=== PATIENT | male | born 1940 | race Caucasian/White ===

== ENCOUNTER → 2017-12-21 08:45 | Outpatient (CLI) | payer MEDICARE, SELFPAY ==
--- NOTE | 2017-12-21 08:53 | ECHOD_ITS ---
Reason For Study: MURMUR Procedure This was a 2D Doppler, Color Flow transthoracic echocardiogram. Exam performed in department. Left Ventricle Normal LV size. Left ventricular systolic function is normal. The estimated ejection fraction is 60 %. Transmitral diastolic flow velocities suggest mild (stage 1) diastolic dysfunction (reversed pattern). No regional wall motion abnormalities noted. Right Ventricle Normal RV size. Normal systolic function. Atria Normal left atrium. Normal right atrium. Hypermobile atrial septum. Mitral Valve Mild focal mitral valve calcification. Mild (1+) eccentric mitral valve insufficiency. Tricuspid Valve Normal tricuspid valve. Mild (1+) tricuspid valve insufficiency. Pulmonary artery systolic pressure is 30 mmHg. Aortic Valve Trisinus/trileaflet aortic valve. Mild focal aortic valve calcification. Peak aortic valve gradient 26 mmHg. Mean aortic valve gradient 15 mmHg. Mild aortic stenosis. Mild (1+) eccentric aortic valve insufficiency. Pulmonic Valve Normal pulmonic valve. Great Vessels Normal aortic root. The pulmonary artery is normal size. Normal inferior vena cava. Pericardium/Pleural No pericardial effusion. MMode/2D Measurements & Calculations LVIDd: 4.0 cm IVSd: 0.79 cm LVOT diam: 2.0 cm LVIDs: 2.5 cm LVPWd: 0.81 cm LVOT area: 3.1 cm2 RVDd: 2.9 cm FS: 38.9 % Ao root diam: 3.2 cm LAV(MOD-bp): 40.9 ml EDV(MOD-sp4): 69.2 ml LAV(MOD-bp) Indexed: 25.4 ml/m2 ESV(MOD-sp4): 31.1 ml LAV(MOD-sp2): 33.1 ml EF(MOD-sp4): 55.0 % LAV(MOD-sp4): 49.5 ml EDV(MOD-sp2): 60.9 ml SV(MOD-sp4): 38.0 ml SV(MOD-sp2): 35.7 ml EF(MOD-sp2): 58.6 % LA A4 area: 16.9 cm2 RA A4 area: 11.0 cm2 Doppler Measurements & Calculations MV E max [place]: 79.0 cm/sec Lat Peak E' [place]: 6.5 cm/sec Med Peak E' [place]: 5.8 cm/sec MV A max [place]: 111.4 cm/sec E/E' lat: 12.1 E/E' med: 13.6 MV E/A: 0.71 MV V2 max: 122.4 cm/sec Ao V2 max: 256.8 cm/sec AI max [place]: 333.8 cm/sec MV max P.0 mmHg Ao max P.4 mmHg AI max P.6 mmHg MV V2 mean: 66.2 cm/sec Ao V2 mean: 183.9 cm/sec AI dec slope: 267.4 cm/sec2 MV mean P.1 mmHg Ao mean P.2 mmHg AI P1/2t: 365.6 msec MV V2 VTI: 24.9 cm Ao V2 VTI: 53.2 cm MVA(VTI): 3.0 cm2 JAMIN(I,D): 1.4 cm2 JAMIN(V,D): 1.3 cm2 LV V1 max: 112.9 cm/sec SV(LVOT): 75.9 ml PA V2 max: 92.9 cm/sec LV V1 max P.1 mmHg LV V1 mean P.0 mmHg LV V1 mean: 83.1 cm/sec LV V1 VTI: 24.7 cm PI end-d dak[place]: 115.8 cm/sec TR max [place]: 251.9 cm/sec TR max P.4 mmHg Interpretation Summary Hypermobile atrial septum. Normal LV size. Left ventricular systolic function is normal. The estimated ejection fraction is 60 %. Transmitral diastolic flow velocities suggest mild (stage 1) diastolic dysfunction (reversed pattern). Mild focal mitral valve calcification. Mild (1+) tricuspid valve insufficiency. Mild aortic stenosis. Mild (1+) eccentric aortic valve insufficiency. Ordering Physician: Pedrito Fernandez Referring Physician: Pedrito Fernandez Performed By: Marlena Aguilar, RDCS, RVT
--- NOTE | 2017-12-21 08:54 | CDU_ITS ---
Reason For Study: STACEY carotid stenosis Rt. Velocities/BP Lt. Velocities/BP Prox CCA 126.0/20.4 cm/sec. Prox CCA 119.0/18.1 cm/sec. Mid CCA 104.0/14.9 cm/sec. Mid CCA 101.0/18.9 cm/sec. Dist CCA 87.2/19.6 cm/sec. Dist CCA 112.0/22.8 cm/sec. Prox ICA 87.4/21.1 cm/sec. Prox ICA 138.0/19.6 cm/sec. Mid ICA 86.2/24.6 cm/sec. Mid ICA 81.5/15.8 cm/sec. Dist ICA 103.0/31.7 cm/sec. Dist ICA 76.2/22.9 cm/sec. Rt. ICA/CCA = 103.0/104.0=1.0. Lt. ICA/CCA = 138.0/101.0=1.4. Prox ECA 169.0/18.7 cm/sec. Prox ECA 144.0/13.8 cm/sec. Rt. Vert. 45.2 cm/sec. Lt. Vert. 47.5/11.0 cm/sec. Right Extracranial There is heterogeneous, irregular atherosclerotic plaque noted in the right common carotid artery. There is heterogeneous, irregular atherosclerotic plaque noted in the right internal carotid artery. The atherosclerotic plaque causes acoustic shadowing. There is heterogeneous, smooth atherosclerotic plaque noted in the right external carotid artery. Antegrade flow is noted in the right vertebral artery. There is heterogeneous, irregular atherosclerotic plaque noted in the right bulb. Left Extracranial There is intimal thickening but no significant atherosclerotic plaque noted in the left common carotid artery. There is heterogeneous, irregular atherosclerotic plaque noted in the left internal carotid artery. There is homogeneous, irregular atherosclerotic plaque noted in the left external carotid artery. Antegrade flow is noted in the left vertebral artery. There is heterogeneous, irregular atherosclerotic plaque noted in the left bulb. Procedure Carotid Duplex 40051. The exam was diagnostic. Exam performed in department. Interpretation Summary Mild (<50%) stenosis right extracranial internal carotid. Moderate (50-69%) stenosis left extracranial internal carotid. Flow within the vertebral arteries is antegrade bilaterally. Acoustic shadowing due to arterial calcification is noted in the proximal internal carotid arteries bilaterally, which obscures visualization of the arterial lumen. Therefore, the degree of stenosis may exceed that which is indicated by velocity criteria alone. Therefore, clinical correlation is advised, and an alternative imaging modality may be helpful. Ordering Physician: Pedrito Fernandez Referring Physician: Pedrito Fernandez Performed By: Andria Ornelas, DEBORAH, RVT
== END ==
PROVIDERS: Family Provider Family Medicine; PCP Family Medicine; Visit Provider Family Medicine
DX: R01.1 Cardiac murmur, unspecified (principal); I65.23 Occlusion and stenosis of bilateral carotid arteries
CPT/HCPCS: 93306; 93880

== ENCOUNTER 2018-01-11 18:38 | Emergency (ER) | payer MEDICARE, SELFPAY ==
[2018-01-11 18:39] VITALS: BP 161/79; PULSE 94; RESP 18; TEMP 37.2; O2SAT 95; BMI 21.7
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
[2018-01-11 19:36] VITALS: BP 131/76; PULSE 92; O2SAT 98
== END 2018-01-11 19:37 | disposition home or self-care (01) ==
PROVIDERS: Emergency Provider Emergency Medicine; Family Provider Family Medicine; PCP Family Medicine
DX: Z04.1 Encounter for examination and observation following transport accident (principal); Z79.82 Long term (current) use of aspirin
CPT/HCPCS: 99282

== ENCOUNTER → 2018-08-09 03:45 | Outpatient (CLI) | payer MEDICARE, SELFPAY ==
[2018-08-09 09:04] LABS: AST(SGOT) 17 U/L (15-37); Alanine Aminotransfer ALT/SGPT 26 U/L (16-61); Albumin, Serum 3.3 g/dL (3.2-5.0); Alkaline Phosphatase 65 U/L (45-117); Bilirubin, Direct 0.12 mg/dL (0.00-0.30); Cholesterol 166 mg/dL (200); Globulin 3.2 g/dL (2.2-4.2); High Density Lipoprotein 56 mg/dL; Protein, Total 6.5 g/dL (6.4-8.2); Triglycerides 40 mg/dL; Very Low Density Lipoprotein 8 mg/dL (5-40)
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
== END ==
PROVIDERS: Family Provider Family Medicine; PCP Family Medicine; Visit Provider Internal Medicine Cardiovascular Disease
DX: I65.22 Occlusion and stenosis of left carotid artery (principal)
CPT/HCPCS: 80061; 80076

== ENCOUNTER 2018-10-24 19:57 | Inpatient (IN) | payer MEDICARE, SELFPAY ==
[2018-10-24 20:00] VITALS: BP 149/70; PULSE 111; RESP 16; TEMP 36.5; O2SAT 98; BMI 19.3
--- NOTE | 2018-10-24 20:21 | EKG12_ITS ---
Test Reason : Blood Pressure : / mmHG Vent. Rate : 100 BPM Atrial Rate : 100 BPM P-R Int : 132 ms QRS Dur : 076 ms QT Int : 344 ms P-R-T Axes : 062 024 017 degrees QTc Int : 443 ms Normal sinus rhythm Possible Left atrial enlargement Nonspecific ST abnormality Abnormal ECG Confirmed by DYANA LEE, CHRISTA ([id number]), senior technical editor GASPER ODONNELL ([id number]) on 10/25/2018 2:38:26 PM Referred By: Constantino Aguiar Confirmed By:CHRISTA TURPIN MD
--- NOTE | 2018-10-24 20:21 | CT_ITS ---
STUDY: CT BRAIN WITHOUT CONTRAST REASON FOR EXAM: Male, 78 years old. Fall on Thursday, bruising on the forehead and around the eyes, patient is on blood thinners RADIATION DOSAGE (If Supplied By Facility): CTDIvol = ( 44.99 ) mGy, DLP = ( 779.24 ) mGycm TECHNIQUE: Transaxial CT imaging of the brain was performed without administration of intravenous contrast material. Individualized dose optimization techniques were used for this CT. COMPARISON: None. FINDINGS: Normal soft tissue structures. Normal calvarium. There is atherosclerosis of the carotid siphons and vertebral arteries. There is mild cerebral atrophy with widening of the extra-axial spaces and ventricular dilatation. There are areas of decreased attenuation within the white matter tracts of the supratentorial brain, consistent with microvascular disease changes. Normal basal ganglia and thalami. Normal brainstem. Normal cerebellum. There is no intracranial hemorrhage. There are no findings of an acute ischemic infarction. Normal visualized paranasal sinuses. Operative changes of the bilateral orbital globes. CT/Brain/Head without Contrast IMPRESSION: 1. No acute intracranial hemorrhage or mass effect. 2. Central parenchymal volume loss. White matter changes that are nonspecific but most commonly associated with chronic small vessel ischemic disease. Electronically Signed: Alan Brown MD at 21:18 EST , Service support ,
--- NOTE | 2018-10-24 20:22 | CT_ITS ---
STUDY: CT FACIAL BONES WITHOUT CONTRAST REASON FOR EXAM: Male, 78 years old. Fall on Thursday, facial swelling, periorbital swelling RADIATION DOSAGE (If Supplied By Facility): CTDIvol = ( 29.38 ) mGy, DLP = ( 584.19 ) mGycm TECHNIQUE: The patient was scanned in a multi detector CT scanner. Sagittal and coronal images were reconstructed. Individualized dose optimization techniques were used for this CT. COMPARISON: None. FINDINGS: There is slight amount of left infraorbital soft tissue swelling but no underlying fracture. Normal orbital carmichael and orbital contents. Normal nasal bones and anterior nasal spine. Normal facial bones. There is no demonstrated fracture. Operative changes of the bilateral orbital globes. Normal visualized paranasal sinuses. Leftward deviation of the nasal septum with apical spur. Carotid calcifications noted. CT/Sinus/Facial Bone IMPRESSION: No maxillofacial/orbital fracture. Left infraorbital soft tissue swelling. Electronically Signed: Alan Brown MD at 21:20 EST , Service support ,
--- NOTE | 2018-10-24 20:22 | CT_ITS ---
STUDY: CT CERVICAL SPINE WITHOUT CONTRAST REASON FOR EXAM: Male, 78 years old. Fall on Thursday, facial swelling, dizziness, neck pain RADIATION DOSAGE (If Supplied By Facility): CTDIvol = ( 12.64 ) mGy, DLP = ( 253.36 ) mGycm TECHNIQUE: High resolution transaxial imaging was performed without contrast material. Sagittal and coronal images were reconstructed. Individualized dose optimization techniques were used for this CT. COMPARISON: None FINDINGS: Normal craniovertebral junction. There are degenerative changes of the anterior atlantoaxial articulation. Normal odontoid process. There is an exaggerated cervical lordosis. Normal vertebral bodies and posterior osseous elements. C2-3: Normal endplates. Normal disc height and morphology. Normal central canal and intervertebral neuroforamina. C3-4: Disc space narrowing with endplate sclerosis and spondylosis. Posterior disc osteophyte complex with right uncovertebral hypertrophy and mild bilateral facet arthropathy resulting in mild right foraminal stenosis. C4-5: Normal endplates. Normal disc height and morphology. Normal central canal and intervertebral neuroforamina. Mild bilateral facet arthropathy, left more than right. C5-6: Mild disc space narrowing posteriorly with moderate bilateral facet arthropathy. Mild narrowing of the bilateral neural foramen. C6-7: Normal endplates. Normal disc height and morphology. Normal central. Bilateral facet arthropathy without substantial foraminal stenosis. C7-T1: Normal endplates. Normal disc height and morphology. Normal central. Bilateral facet arthropathy without substantial foraminal stenosis. Atherosclerosis of the bilateral carotid arteries. CT/Spine Cervical without Contras IMPRESSION: 1. No cervical spine fracture. 2. Exaggerated cervical lordosis. 3. Degenerative changes, as above. Electronically Signed: Alan Brown MD at 21:22 EST , Service support ,
--- NOTE | 2018-10-24 20:27 | ED.DCSUM_ITS ---
- ER Visit Summary Date of Service: 10/24/18 Chief Complaint: Fall, dizziness History of Present Illness: The patient is a 78 M presenting after fall. Patient fell 2 days ago on his basement steps. He hit his head on the basement floor. He denies loss of consciousness. He is not on anticoagulants. He does not know what caused him to fall. He was doing well yesterday. He has been able to ambulate. Today he was doing well and then had an episode of hematemesis. He has had dark stool. He had dizziness after vomiting. He denies chest pain or shortness of breath. Denies abdominal pain. Denies other complaints. Physical Examination: Vitals are stable. Patient is afebrile. Alert no acute distress. HEENT exam left periorbital ecchymosis. Neck is nontender Lungs are clear and equal bilaterally. Heart is regular rate and rhythm. Abdomen is soft nontender nondistended. Extremities are unremarkable. Skin is warm and dry. No focal neurologic deficit. Remainder of exam is unremarkable. Emergency Department Course and Treatment: EKG is sinus rate of 100 with no acute ischemic changes. Chest x-ray shows no acute process. CT head shows no acute process. CT maxillofacial bones shows left infraorbital soft tissue swelling with no fracture. CT C-spine shows no fracture. CBC shows hemoglobin 7.8, platelet 145. Chemistries showed glucose 114, BUN 47. INR 1.2. Troponin is negative. Stool is guaiac negative. Due to hematemesis NG tube was placed. He has 100 cc of coffee-ground emesis aspirated. He was given Protonix IV. Discussed with Dr. Amor and the hospitalist for admission. Disposition: Admission Impression: Upper GI bleed This note was generated with [employer] dictation software. It may contain incorrect words, spelling, and punctuation that were not noted in review of the chart prior to signing ED Disposition - Plan for ED Patient: Referrals: Pedrito Fernandez MD [Primary Care Provider] -
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
[2018-10-24 20:31] LABS: Absolute Lymphocyte Count 0.67 X10^3/ul (0.83-4.51); Absolute Neutrophil Count 8.2 X10^3/uL (2.0-7.7); Basophil# 0.03 X10^3/uL; Basophil% 0.3 % (0-1); Eosinophil# 0.09 X10^3/uL; Eosinophils% 0.9 % (0-5); Hematocrit 23.9 % (40-54); Hemoglobin 7.8 g/dl (13.0-16.5); Lymphocyte # 0.67 X10^3/ul (4.0); Lymphocyte % 6.6 % (19-41); Mean Corp Hgb Conc 32.6 g/gl (32-36); Mean Corpuscular Hgb 31.3 pg (27.0-32.0); Mean Platelet Vol. 9.6 fl (6.2-12.0); Monocyte# 1.12 X10^3/uL; Neutrophil # 8.23 X10^3/uL (2.7-7.7); POSITIVE COUNT NO; POSITIVE DIFFERENTIAL NO; POSITIVE MORPHOLOGY NO; Platelet Count 145 K/mm3 (150-450); RBC Distribution Width CV 13.5 % (11.6-14.6); Red Blood Count 2.49 M/mm3 (4.6-6.2); White Blood Count 10.2 K/mm3 (4.4-11.0)
[2018-10-24 20:38] LABS: International Normalized Ratio 1.2; Prothrombin Time (Protime)PT. 14.6 SECONDS (11.7-14.9)
[2018-10-24 20:39] LABS: Partial Thromboplast Time 23.8 Seconds (24.1-36.2)
[2018-10-24 20:48] LABS: Anion Gap 5 (5-15); BUN 47 mg/dL (7-18); BUN/Creat Ratio 42.7 RATIO (10-20); Calcium,Total 7.7 mg/dL (8.5-10.1); Chloride 111 mmol/L (98-107); EST Glomerular Filtration Rate 69 mL/min (>60); Est Glom Filt Rate - Afr Amer 83 mL/min (>60); Glucose 114 mg/dL (74-106); Potassium 4.3 mmol/L (3.5-5.1); Sodium Level 142 mmol/L (136-145)
--- NOTE | 2018-10-24 21:25 | RAD_ITS ---
STUDY: X-RAY - ABDOMEN/PELVIS REASON FOR EXAM: Male, 78 years old. An NG tube placement TECHNIQUE: Single AP view of the abdomen / pelvis. COMPARISON: None. FINDINGS: There is an enteric tube noted with its tip in the stomach. There is no bowel obstruction. There is air and stool to the level of the rectum. There are degenerative changes noted in the spine. RAD/Abdomen Single View (Portable) IMPRESSION: Enteric tube tip in the stomach. No bowel obstruction. Electronically Signed: Alan Forrest, at 22:17 EST Tel , Service support ,
[2018-10-24 22:05] VITALS: BP 133/69; PULSE 101; RESP 12
--- NOTE | 2018-10-24 22:55 | PCM.HP.STD ---
Problem List (1) GI bleed Status: Acute (2) Closed head injury Status: Acute (3) Fall Status: Acute (4) Systolic murmur Status: Chronic (5) Left carotid artery stenosis Status: Chronic History of Present Illness Date of Admission: 10/24/18 Chief Complaint: Hematemesis, fall. The patient is a 78 year old M with past medical history as mentioned above presented to the emergency room because of hematemesis and fall. Patient's daughter who is a nurse was at the bedside and she states that the main presenting complaint today is because he vomited blood once this evening. The vomitus was bright red blood, moderate to large amount, associated with mild dizziness and without aggravating or relieving factors. His daughter mentioned that he complained that his stool has been dark over the last several days. He denied abdominal pain, constipation or diarrhea. 3 days ago, patient had a fall and he is not sure why he fell and he did not seek medical attention. He does not remember if he was dizzy or lightheaded. He denied chest pain or shortness of breath. In the emergency department, patient was afebrile, tachycardic, blood pressure was stable and pulse ox was 98% on room air. Routine blood work was remarkable for hemoglobin of 7.8 g/dL, BUN of 47, otherwise normal. EKG revealed normal sinus rhythm without evidence of acute ischemic changes. Troponin was negative. CTA head done because of the mechanical fall and showed no acute findings. CT scan cervical spine showed no acute fracture or dislocation. Because of the periorbital ecchymosis, x-ray of the facial bones and sinuses done and showed no acute fractures. Chest x-ray showed no infiltrate, consolidation or effusion. KUB done after insertion of NG tube and showed that the tip of the tube is in the stomach. He is being admitted for GI bleed likely upper GI bleed, acute blood loss anemia and recent mechanical fall with closed head trauma. Past Medical History Past Medical History (Chronic Problems): Chronic Problems (Last Reviewed 02/03/18 @ 11:15 by Jaime Oreilly MD) Systolic murmur (Chronic) Non-rheumatic tricuspid valve insufficiency (Chronic) Nonrheumatic aortic valve insufficiency (Chronic) Carotid bruit (Chronic) Left carotid artery stenosis (Chronic) Medical History: Medical History (Last Reviewed 02/03/18 @ 11:15 by Jaime Oreilly MD) Left carotid artery stenosis (Chronic) I65.22 Prostate cancer C61 Allergies Penicillins Adverse Reaction (Verified 10/24/18 20:04) Unknown Home Medications: Ambulatory Orders Medication Instructions Recorded Aspirin [Aspirin, Baby] 81 mg PO DAILY 01/11/18 ascorbic acid (vitamin C) 500 mg 500 mg PO QDAY 02/03/18 tablet atorvastatin 10 mg tablet 10 mg PO QDAY #90 tab 02/03/18 multivitamin capsule 1 cap PO QAM 02/03/18 Surgical History: herniorrhaphy Psychiatric History: No pertinent psych hx Lives: Alone Smoking Status: Never smoker Alcohol: None Drugs: None - *Family History Maternal Family History: Family History (Last Reviewed 02/03/18 @ 11:15 by Jaime Oreilly MD) Brother Hypertension Daughter Hypertension Mother Heart disease History Items: No pertinent history Paternal Family History: Family History (Last Reviewed 02/03/18 @ 11:15 by Jaime Oreilly MD) Brother Hypertension Daughter Hypertension Mother Heart disease History Items: No pertinent history Review of Systems Constitutional: Denies: Anorexia, Chills, Fever, Weakness Eyes: Denies: Blurred vision, Double vision, Drainage, Redness HEENT: Denies: Difficulty Hearing, Ear Pain, Eye Pain, Nasal bleeding, Nasal Congestion, Sore Throat Cardiovascular: Reports: Light Headedness. Denies: Chest Pain, Chest Pressure, Chest Tightness, Palpitations, Syncope Respiratory: Denies: Cough, Pleuritic Pain, Shortness of Breath, Sputum production, Wheezing Gastrointestinal: Reports: Hematemesis. Denies: Abdominal Pain, Constipation, Diarrhea, Nausea, Vomiting Genitourinary: Denies: Dysuria, Frequency, Hematuria Musculoskeletal: Denies: Arm Pain, Back Pain, Foot Pain Skin: Denies: Dryness, Rash Neurological: Denies: Balance problems, Blurred vision, Double vision, Change in Speech, Slurred speech, Confusion, Headaches, Incoordination, Numbness Psychiatric: Denies: Anxiety, Depression Endocrine: Denies: Change in Body Habitus, Polydipsia VTE Information - Inpt Only VTE Present on Admission: No VTE Mechan Device Prophylaxis: SCD's VTE Pharm Prophylaxis ordered?: No Patient Problems: Active and Suspected Problems (Last Reviewed 02/03/18 @ 11:15 by Jaime Oreilly MD) GI bleed (Acute) Closed head injury (Acute) Fall (Acute) - Physical Exam General: Alert, Oriented x3, Cooperative, No apparent distress HEENT: PERRLA, EOMI, Normocephalic, - - Traumatic, left periorbital ecchymosis. Oral: Moist Mucosa, No Gingival or Mucosal Lesions/ Ulcerations Neck: Supple, No JVD, Negative Carotid Bruits, Trachea Midline, Thyroid Normal Size and Texture Lungs: Clear to auscultation, No rhonchi, No wheeze, No rales, Diminished Cardiovascular: Regular rate, Regular Rhythm, Normal S1, Normal S2, PMI Normal, Murmur - Systolic murmur., Tachycardic Abdomen: Bowel Sounds Present, Soft, Non Tender, Non-Distended, No Hepato-splenomegaly Extremities: No clubbing, No cyanosis, Edema - Trace edema. Skin: No rashes, No breakdown Lymphatic: No Cervical, Supraclavicular, or Inguinal Adenopathy Neurological: Cranial nerves II-XII grossly intact, Motor Exam 5/5 strength throughout Psych/Mental Status: Normal Affect, Appropriate, Alert and oriented to time, place, person, mood and affect Vital Signs Temp Pulse Resp BP Pulse Ox 97.7 F L 101 H 12 133/69 H 98 10/24/18 20:00 10/24/18 22:05 10/24/18 22:05 10/24/18 22:05 10/24/18 20:00 Oxygen Delivery Method Room Air Weight: 120 lb Body Mass Index (BMI) 19.3 Microbiology Past 72 Hours 10/24/18 21:12 Stool Occult Blood (ANDREA) - Final Stool Laboratory Tests Past 24 Hrs 10/24/18 10/24/18 10/24/18 20:18 20:18 20:18 WBC 10.2 RBC 2.49 L Hgb 7.8 L Hct 23.9 L MCV 96.0 H MCH 31.3 MCHC 32.6 RDW 13.5 RDW Differential 47.0 H Plt Count 145 L MPV 9.6 Immature Gran % (Auto) 0.200 Neut % (Auto) 81.0 H Lymph % (Auto) 6.6 L [place] % (Auto) 11.0 H Eos % (Auto) 0.9 Baso % (Auto) 0.3 Absolute Neuts (auto) 8.2 H Absolute Lymphs (auto) 0.67 L Total Counted Not Reportable PT 14.6 INR 1.2 APTT 23.8 L Sodium 142 Potassium 4.3 Chloride 111 H Carbon Dioxide 26.0 Anion Gap 5 BUN 47 H Creatinine 1.10 Estim Creat Clear Calc 43.30 Est GFR (MDRD) Af Amer 83 Est GFR (MDRD) Non-Af 69 BUN/Creatinine Ratio 42.7 H Glucose 114 H Calcium 7.7 L Troponin I < 0.015 Clinical Impression(s) from Imaging Studies Brain CT 10/24/18 20:21 IMPRESSION: 1. No acute intracranial hemorrhage or mass effect. 2. Central parenchymal volume loss. White matter changes that are nonspecific but most commonly associated with chronic small vessel ischemic disease. Electronically Signed: Alan Brown MD at 21:18 EST , Service support , Cervical Spine CT 10/24/18 20:22 IMPRESSION: 1. No cervical spine fracture. 2. Exaggerated cervical lordosis. 3. Degenerative changes, as above. Electronically Signed: Alan Brown MD at 21:22 EST , Service support , Facial/Sinus 10/24/18 20:22 IMPRESSION: No maxillofacial/orbital fracture. Left infraorbital soft tissue swelling. Electronically Signed: Alan Brown MD at 21:20 EST , Service support , Chest X-Ray 10/24/18 20:30 IMPRESSION: Nonacute portable x-ray examination of the chest. Electronically Signed: Alan Brown MD at 20:45 EST , Service support , KUB X-Ray 10/24/18 21:25 IMPRESSION: Enteric tube tip in the stomach. No bowel obstruction. Electronically Signed: Alan Forrest, at 22:17 EST Tel , Service support , Assessment/Plan All Active Problems (Last Reviewed 02/03/18 @ 11:15 by Jaime Oreilly MD) GI bleed (Acute) Closed head injury (Acute) Fall (Acute) This is a 78 years old male patient presented to the emergency room because of hematemesis and recent fall, found to have GI bleed with acute blood loss anemia and closed head injury. #1 GI bleed: Likely upper GI bleed. BUN is elevated, creatinine is normal. Patient is likely actively bleeding because he is tachycardic. Differential diagnoses include peptic ulcer disease. Apart from tachycardia, other vital signs stable. Patient denies any use of NSAIDs. Plan: Admit to ICU, complete bedrest, critical care monitoring, keep on n.p.o., IV fluids, type, crossmatch and transfuse 2 units of packed RBCs, H&H every 6 hours, start IV Protonix drip, repeat CBC and BMP tomorrow morning, general surgery consult, antiemetics. #2 acute blood loss anemia: Secondary above. Admission hemoglobin is a 7.8 g/dL. Baseline hemoglobin is unknown. Plan to transfuse 2 units of packed RBCs, H&H every 6 hours, repeat CBC tomorrow morning. #3 recent fall/closed head trauma: Patient not sure why he had a fall. He does have ecchymosis around his eyes. Imaging studies including CT scan brain CT scan cervical spine, x-ray of the facial bones and sinuses as well as chest x-ray showed no acute fractures or dislocations. #4 carotid artery stenosis: Stable, patient had no interventions and he has been on statins according to his daughter. #5 DVT prophylaxis: SCDs. #6 CODE STATUS: In the emergency room, I discussed the CODE STATUS with the patient and his daughter and both confirming DNR CCA, patient does not want any CPR, intubation or mechanical ventilation. After patient got into the ICU, nursing staff reported that the patient and his daughter changed their minds and they wanted full code. At this time, patient states her left. I would keep the CODE STATUS as full code for now and we need to discuss the CODE STATUS again with the patient in the presence of his daughter tomorrow. This note was generated with Dragon dictation software. It may contain incorrect words, spelling, and punctuation that were not noted in checking the note before signing. Code Visit Inpatient E&M: 40944 Init Hosp L3
--- NOTE | 2018-10-24 22:59 | HP.PCM_ITS ---
Problem List (1) GI bleed Status: Acute (2) Closed head injury Status: Acute (3) Fall Status: Acute (4) Systolic murmur Status: Chronic (5) Left carotid artery stenosis Status: Chronic History of Present Illness Date of Admission: 10/24/18 Chief Complaint: Hematemesis, fall. The patient is a 78 year old M with past medical history as mentioned above presented to the emergency room because of hematemesis and fall. Patient's daughter who is a nurse was at the bedside and she states that the main presenting complaint today is because he vomited blood once this evening. The vomitus was bright red blood, moderate to large amount, associated with mild dizziness and without aggravating or relieving factors. His daughter mentioned that he complained that his stool has been dark over the last several days. He denied abdominal pain, constipation or diarrhea. 3 days ago, patient had a fall and he is not sure why he fell and he did not seek medical attention. He does not remember if he was dizzy or lightheaded. He denied chest pain or shortness of breath. In the emergency department, patient was afebrile, tachycardic, blood pressure was stable and pulse ox was 98% on room air. Routine blood work was remarkable for hemoglobin of 7.8 g/dL, BUN of 47, otherwise normal. EKG revealed normal sinus rhythm without evidence of acute ischemic changes. Troponin was negative. CTA head done because of the mechanical fall and showed no acute findings. CT scan cervical spine showed no acute fracture or dislocation. Because of the periorbital ecchymosis, x-ray of the facial bones and sinuses done and showed no acute fractures. Chest x-ray showed no infiltrate, consolidation or effusion. KUB done after insertion of NG tube and showed that the tip of the tube is in the stomach. He is being admitted for GI bleed likely upper GI bleed, acute blood loss anemia and recent mechanical fall with closed head trauma. Past Medical History Past Medical History (Chronic Problems): Chronic Problems (Last Reviewed 02/03/18 @ 11:15 by Jaime Oreilly MD) Systolic murmur (Chronic) Non-rheumatic tricuspid valve insufficiency (Chronic) Nonrheumatic aortic valve insufficiency (Chronic) Carotid bruit (Chronic) Left carotid artery stenosis (Chronic) Medical History: Medical History (Last Reviewed 02/03/18 @ 11:15 by Jaime Oreilly MD) Left carotid artery stenosis (Chronic) I65.22 Prostate cancer C61 Allergies Penicillins Adverse Reaction (Verified 10/24/18 20:04) Unknown Home Medications: Ambulatory Orders Medication Instructions Recorded Aspirin [Aspirin, Baby] 81 mg PO DAILY 01/11/18 ascorbic acid (vitamin C) 500 mg 500 mg PO QDAY 02/03/18 tablet atorvastatin 10 mg tablet 10 mg PO QDAY #90 tab 02/03/18 multivitamin capsule 1 cap PO QAM 02/03/18 Surgical History: herniorrhaphy Psychiatric History: No pertinent psych hx Lives: Alone Smoking Status: Never smoker Alcohol: None Drugs: None - *Family History Maternal Family History: Family History (Last Reviewed 02/03/18 @ 11:15 by Jaime Oreilly MD) Brother Hypertension Daughter Hypertension Mother Heart disease History Items: No pertinent history Paternal Family History: Family History (Last Reviewed 02/03/18 @ 11:15 by Jaime Oreilly MD) Brother Hypertension Daughter Hypertension Mother Heart disease History Items: No pertinent history Review of Systems Constitutional: Denies: Anorexia, Chills, Fever, Weakness Eyes: Denies: Blurred vision, Double vision, Drainage, Redness HEENT: Denies: Difficulty Hearing, Ear Pain, Eye Pain, Nasal bleeding, Nasal Congestion, Sore Throat Cardiovascular: Reports: Light Headedness. Denies: Chest Pain, Chest Pressure, Chest Tightness, Palpitations, Syncope Respiratory: Denies: Cough, Pleuritic Pain, Shortness of Breath, Sputum production, Wheezing Gastrointestinal: Reports: Hematemesis. Denies: Abdominal Pain, Constipation, Diarrhea, Nausea, Vomiting Genitourinary: Denies: Dysuria, Frequency, Hematuria Musculoskeletal: Denies: Arm Pain, Back Pain, Foot Pain Skin: Denies: Dryness, Rash Neurological: Denies: Balance problems, Blurred vision, Double vision, Change in Speech, Slurred speech, Confusion, Headaches, Incoordination, Numbness Psychiatric: Denies: Anxiety, Depression Endocrine: Denies: Change in Body Habitus, Polydipsia VTE Information - Inpt Only VTE Present on Admission: No VTE Mechan Device Prophylaxis: SCD's VTE Pharm Prophylaxis ordered?: No Patient Problems: Active and Suspected Problems (Last Reviewed 02/03/18 @ 11:15 by Jaime Oreilly MD) GI bleed (Acute) Closed head injury (Acute) Fall (Acute) - Physical Exam General: Alert, Oriented x3, Cooperative, No apparent distress HEENT: PERRLA, EOMI, Normocephalic, - - Traumatic, left periorbital ecchymosis. Oral: Moist Mucosa, No Gingival or Mucosal Lesions/ Ulcerations Neck: Supple, No JVD, Negative Carotid Bruits, Trachea Midline, Thyroid Normal Size and Texture Lungs: Clear to auscultation, No rhonchi, No wheeze, No rales, Diminished Cardiovascular: Regular rate, Regular Rhythm, Normal S1, Normal S2, PMI Normal, Murmur - Systolic murmur., Tachycardic Abdomen: Bowel Sounds Present, Soft, Non Tender, Non-Distended, No Hepato- splenomegaly Extremities: No clubbing, No cyanosis, Edema - Trace edema. Skin: No rashes, No breakdown Lymphatic: No Cervical, Supraclavicular, or Inguinal Adenopathy Neurological: Cranial nerves II-XII grossly intact, Motor Exam 5/5 strength throughout Psych/Mental Status: Normal Affect, Appropriate, Alert and oriented to time, place, person, mood and affect Vital Signs Temp Pulse Resp BP Pulse Ox 97.7 F L 101 H 12 133/69 H 98 10/24/18 20:00 10/24/18 22:05 10/24/18 22:05 10/24/18 22:05 10/24/18 20:00 Oxygen Delivery Method Room Air Weight: 120 lb Body Mass Index (BMI) 19.3 Microbiology Past 72 Hours 10/24/18 21:12 Stool Occult Blood (ANDREA) - Final Stool Laboratory Tests Past 24 Hrs 10/24/18 10/24/18 10/24/18 20:18 20:18 20:18 WBC 10.2 RBC 2.49 L Hgb 7.8 L Hct 23.9 L MCV 96.0 H MCH 31.3 MCHC 32.6 RDW 13.5 RDW Differential 47.0 H Plt Count 145 L MPV 9.6 Immature Gran % (Auto) 0.200 Neut % (Auto) 81.0 H Lymph % (Auto) 6.6 L [place] % (Auto) 11.0 H Eos % (Auto) 0.9 Baso % (Auto) 0.3 Absolute Neuts (auto) 8.2 H Absolute Lymphs (auto) 0.67 L Total Counted Not Reportable PT 14.6 INR 1.2 APTT 23.8 L Sodium 142 Potassium 4.3 Chloride 111 H Carbon Dioxide 26.0 Anion Gap 5 BUN 47 H Creatinine 1.10 Estim Creat Clear Calc 43.30 Est GFR (MDRD) Af Amer 83 Est GFR (MDRD) Non-Af 69 BUN/Creatinine Ratio 42.7 H Glucose 114 H Calcium 7.7 L Troponin I < 0.015 Clinical Impression(s) from Imaging Studies Brain CT 10/24/18 20:21 IMPRESSION: 1. No acute intracranial hemorrhage or mass effect. 2. Central parenchymal volume loss. White matter changes that are nonspecific but most commonly associated with chronic small vessel ischemic disease. Electronically Signed: Alan Brown MD at 21:18 EST , Service support , Cervical Spine CT 10/24/18 20:22 IMPRESSION: 1. No cervical spine fracture. 2. Exaggerated cervical lordosis. 3. Degenerative changes, as above. Electronically Signed: Alan Brown MD at 21:22 EST , Service support , Facial/Sinus 10/24/18 20:22 IMPRESSION: No maxillofacial/orbital fracture. Left infraorbital soft tissue swelling. Electronically Signed: Alan Brown MD at 21:20 EST , Service support , Chest X-Ray 10/24/18 20:30 IMPRESSION: Nonacute portable x-ray examination of the chest. Electronically Signed: Alan Brown MD at 20:45 EST , Service support , KUB X-Ray 10/24/18 21:25 IMPRESSION: Enteric tube tip in the stomach. No bowel obstruction. Electronically Signed: Alan Forrest, at 22:17 EST Tel , Service support , Assessment/Plan All Active Problems (Last Reviewed 02/03/18 @ 11:15 by Jaime Oreilly MD) GI bleed (Acute) Closed head injury (Acute) Fall (Acute) This is a 78 years old male patient presented to the emergency room because of hematemesis and recent fall, found to have GI bleed with acute blood loss anemia and closed head injury. #1 GI bleed: Likely upper GI bleed. BUN is elevated, creatinine is normal. Patient is likely actively bleeding because he is tachycardic. Differential diagnoses include peptic ulcer disease. Apart from tachycardia, other vital signs stable. Patient denies any use of NSAIDs. Plan: Admit to ICU, complete bedrest, critical care monitoring, keep on n.p.o., IV fluids, type, crossmatch and transfuse 2 units of packed RBCs, H&H every 6 hours, start IV Protonix drip, repeat CBC and BMP tomorrow morning, general surgery consult, antiemetics. #2 acute blood loss anemia: Secondary above. Admission hemoglobin is a 7.8 g/dL. Baseline hemoglobin is unknown. Plan to transfuse 2 units of packed RBCs, H&H every 6 hours, repeat CBC tomorrow morning. #3 recent fall/closed head trauma: Patient not sure why he had a fall. He does have ecchymosis around his eyes. Imaging studies including CT scan brain CT scan cervical spine, x-ray of the facial bones and sinuses as well as chest x- ray showed no acute fractures or dislocations. #4 carotid artery stenosis: Stable, patient had no interventions and he has been on statins according to his daughter. #5 DVT prophylaxis: SCDs. #6 CODE STATUS: In the emergency room, I discussed the CODE STATUS with the patient and his daughter and both confirming DNR CCA, patient does not want any CPR, intubation or mechanical ventilation. After patient got into the ICU, nursing staff reported that the patient and his daughter changed their minds and they wanted full code. At this time, patient states her left. I would keep the CODE STATUS as full code for now and we need to discuss the CODE STATUS again with the patient in the presence of his daughter tomorrow. This note was generated with Dragon dictation software. It may contain incorrect words, spelling, and punctuation that were not noted in checking the note before signing. Code Visit Inpatient E&M: 30013 Init Hosp L3
[2018-10-24 23:23] VITALS: BMI 19.8; BMI 19.9
[2018-10-24 23:30] VITALS: BP 161/72; PULSE 102; RESP 16; O2SAT 98
[2018-10-24] MEDS: 0.9% Normal Saline 1,000 ML 100 ML IV (23:32)
[2018-10-24 23:45] VITALS: BP 140/77; PULSE 98; RESP 14; O2SAT 98
[2018-10-24 23:49] LABS: Hematocrit 21.6 % (40-54); Hemoglobin 7.1 g/dl (13.0-16.5)
[2018-10-25] VITALS (27 sets, daily range): BP systolic 109–158; BP diastolic 61–89; PULSE 82–102; RESP 12–19; TEMP 36.6–37.4; O2SAT 97–100
[2018-10-25] MEDS: 0.9% NaCl Peripheral Flush Adult/Peds IV
[2018-10-25 06:35] LABS: Anion Gap 8 (5-15); BUN 27 mg/dL (7-18); BUN/Creat Ratio 42.7 RATIO (10-20); Chloride 113 mmol/L (98-107); Creatinine, Serum 0.63 mg/dL (0.70-1.30); EST Glomerular Filtration Rate 130 mL/min (>60); Est Glom Filt Rate - Afr Amer 158 mL/min (>60); Estimated Creatinine Clearance 49.61 ml/min; Glucose 88 mg/dL (74-106); Potassium 3.7 mmol/L (3.5-5.1); Sodium Level 145 mmol/L (136-145)
[2018-10-25 07:04] LABS: Basophil# 0.03 X10^3/uL; Basophil% 0.5 % (0-1); Eosinophil# 0.09 X10^3/uL; Eosinophils% 1.4 % (0-5); Hematocrit 24.1 % (40-54); Lymphocyte % 9.5 % (19-41); Mean Corp Hgb Conc 33.2 g/gl (32-36); Mean Corpuscular Hgb 31.7 pg (27.0-32.0); Mean Corpuscular Volume 95.6 fL (80-94); Mean Platelet Vol. 10.1 fl (6.2-12.0); Monocyte# 0.59 X10^3/uL; Monocyte% 9.4 % (0-10); Neutrophil # 4.99 X10^3/uL (2.7-7.7); Platelet Count 125 K/mm3 (150-450); RBC Distribution Width CV 13.6 % (11.6-14.6); RBC Distribution Width SD 46.9 fl (35.1-43.9); Red Blood Count 2.52 M/mm3 (4.6-6.2); White Blood Count 6.3 K/mm3 (4.4-11.0)
[2018-10-25 07:06] LABS: Differential Indicated SCAN CRITERIA MET; POSITIVE COUNT NO; POSITIVE DIFFERENTIAL YES; POSITIVE MORPHOLOGY NO
--- NOTE | 2018-10-25 08:05 | CON.PCM_ITS ---
Problem List (1) GI bleed Status: Acute Qualifiers: GI bleed type/associated pathology: unspecified gastrointestinal hemorrhage type Qualified Code(s): K92.2 - Gastrointestinal hemorrhage, unspecified Reason for Consult Date of Consultation: 10/25/18 History of Present Illness: The patient is a 78 year old M with past medical history as mentioned above presented to the emergency room because of hematemesis and fall. Patient's daughter who is a nurse was at the bedside and she states that the main presenting complaint today is because he vomited blood once this evening. The vomitus was bright red blood, moderate to large amount, associated with mild dizziness and without aggravating or relieving factors. His daughter mentioned that he complained that his stool has been dark over the last several days. He denied abdominal pain, constipation or diarrhea. 3 days ago, patient had a fall and he is not sure why he fell and he did not seek medical attention. He does not remember if he was dizzy or lightheaded. He denied chest pain or shortness of breath. In the emergency department, patient was afebrile, tachycardic, blood pressure was stable and pulse ox was 98% on room air. Routine blood work was remarkable for hemoglobin of 7.8 g/dL, BUN of 47, otherwise normal. EKG revealed normal sinus rhythm without evidence of acute ischemic changes. Troponin was negative. CTA head done because of the mechanical fall and showed no acute findings. CT scan cervical spine showed no acute fracture or dislocation. Because of the periorbital ecchymosis, x-ray of the facial bones and sinuses done and showed no acute fractures. Chest x-ray showed no infiltrate, consolidation or effusion. KUB done after insertion of NG tube and showed that the tip of the tube is in the stomach. He has had very little coming out from his NG tube. He has not had any other bowel movements since being in the hospital. He is not complaining of any active abdominal pain. Past Medical History Past Medical History (Chronic Problems): Chronic Problems (Last Reviewed 02/03/18 @ 11:15 by Jaime Oreilly MD) Systolic murmur (Chronic) Non-rheumatic tricuspid valve insufficiency (Chronic) Nonrheumatic aortic valve insufficiency (Chronic) Carotid bruit (Chronic) Left carotid artery stenosis (Chronic) Medical History: Medical History (Last Reviewed 10/25/18 @ 08:03 by Abraham Amor MD) Left carotid artery stenosis (Chronic) I65.22 Prostate cancer C61 Allergies Penicillins Adverse Reaction (Verified 10/24/18 20:04) Unknown Home Medications: Ambulatory Orders Medication Instructions Recorded Aspirin [Aspirin, Baby] 81 mg PO DAILY 01/11/18 ascorbic acid (vitamin C) 500 mg 500 mg PO QDAY 02/03/18 tablet atorvastatin 10 mg tablet 10 mg PO QDAY #90 tab 02/03/18 multivitamin capsule 1 cap PO QAM 02/03/18 Surgical History: herniorrhaphy Psychiatric History: No pertinent psych hx Lives: Alone Smoking Status: Never smoker Alcohol: None Drugs: None - *Family History Maternal Family History: Family History (Last Reviewed 10/25/18 @ 08:03 by Abraham Amor MD) Brother Hypertension Daughter Hypertension Mother Heart disease History Items: No pertinent history Paternal Family History: Family History (Last Reviewed 10/25/18 @ 08:03 by Abraham Amor MD) Brother Hypertension Daughter Hypertension Mother Heart disease History Items: No pertinent history Review of Systems Constitutional: Denies: Chills, Fever, Weight Change Cardiovascular: Denies: Chest Pain, Chest Pressure, Chest Tightness, Palpitations Respiratory: Denies: Cough, Hemoptysis, Shortness of breath at rest, Shortness of breath upon exertion, Wheezing Gastrointestinal: Denies: Abdominal Pain, Constipation, Diarrhea, Hematemesis, Nausea, Melena, Vomiting Patient Problems: Active and Suspected Problems (Last Reviewed 02/03/18 @ 11:15 by Jaime Oreilly MD) GI bleed (Acute) Closed head injury (Acute) Fall (Acute) - Physical Exam General: Alert, Oriented x3 Neck: Supple, No JVD Lungs: Clear to auscultation Cardiovascular: Regular rate, Regular Rhythm, No murmurs Abdomen: Bowel Sounds Present, Soft, Non Tender, Non-Distended Vital Signs Temp Pulse Resp BP Pulse Ox 98.2 F 89 16 144/76 H 98 10/25/18 04:40 10/25/18 07:00 10/25/18 07:00 10/25/18 07:00 10/25/18 07:00 Oxygen Delivery Method Room Air Weight: 125 lb 0.034 oz Body Mass Index (BMI) 19.8 Intake and Output for Last 24 Hours 10/23/18 10/24/1810/25/19 23:59 23:59 23:59 Intake Total 1091.0 / 1091.0 Output Total 875 / 875 Balance 216.0 / 216.0 Microbiology Past 72 Hours 10/24/18 21:12 Stool Occult Blood (ANDREA) - Final Stool Laboratory Tests Past 24 Hrs 10/24/18 10/24/18 10/24/18 20:18 20:18 20:18 WBC 10.2 RBC 2.49 L Hgb 7.8 L Hct 23.9 L MCV 96.0 H MCH 31.3 MCHC 32.6 RDW 13.5 RDW Differential 47.0 H Plt Count 145 L MPV 9.6 Immature Gran % (Auto) 0.200 Neut % (Auto) 81.0 H Lymph % (Auto) 6.6 L [place] % (Auto) 11.0 H Eos % (Auto) 0.9 Baso % (Auto) 0.3 Absolute Neuts (auto) 8.2 H Absolute Lymphs (auto) 0.67 L Total Counted Not Reportable PT 14.6 INR 1.2 APTT 23.8 L Sodium 142 Potassium 4.3 Chloride 111 H Carbon Dioxide 26.0 Anion Gap 5 BUN 47 H Creatinine 1.10 Estim Creat Clear Calc 43.30 Est GFR (MDRD) Af Amer 83 Est GFR (MDRD) Non-Af 69 BUN/Creatinine Ratio 42.7 H Glucose 114 H Calcium 7.7 L Troponin I < 0.015 Blood Type Antibody Screen Crossmatch 10/24/18 10/24/18 10/25/18 20:18 23:30 05:40 WBC 6.3 RBC 2.52 L Hgb 7.1 L 8.0 L Hct 21.6 L 24.1 L MCV 95.6 H MCH 31.7 MCHC 33.2 RDW 13.6 RDW Differential 46.9 H Plt Count 125 L MPV 10.1 Immature Gran % (Auto) 0.200 Neut % (Auto) 79.0 H Lymph % (Auto) 9.5 L [place] % (Auto) 9.4 Eos % (Auto) 1.4 Baso % (Auto) 0.5 Absolute Neuts (auto) 5.0 Absolute Lymphs (auto) 0.60 L Total Counted Not Reportable PT INR APTT Sodium Potassium Chloride Carbon Dioxide Anion Gap BUN Creatinine Estim Creat Clear Calc Est GFR (MDRD) Af Amer Est GFR (MDRD) Non-Af BUN/Creatinine Ratio Glucose Calcium Troponin I Blood Type A POSITIVE Antibody Screen NEGATIVE Crossmatch See Detail 10/25/18 05:40 WBC RBC Hgb Hct MCV MCH MCHC RDW RDW Differential Plt Count MPV Immature Gran % (Auto) Neut % (Auto) Lymph % (Auto) [place] % (Auto) Eos % (Auto) Baso % (Auto) Absolute Neuts (auto) Absolute Lymphs (auto) Total Counted PT INR APTT Sodium 145 Potassium 3.7 Chloride 113 H Carbon Dioxide 24.0 Anion Gap 8 BUN 27 H Creatinine 0.63 L Estim Creat Clear Calc 49.61 Est GFR (MDRD) Af Amer 158 Est GFR (MDRD) Non-Af 130 BUN/Creatinine Ratio 42.7 H Glucose 88 Calcium 7.0 L Troponin I Blood Type Antibody Screen Crossmatch Assessment/Plan All Active Problems (Last Reviewed 02/03/18 @ 11:15 by Jaime Oreilly MD) GI bleed (Acute) Closed head injury (Acute) Fall (Acute) Plan will be to perform an upper endoscopy on him sometime tomorrow. I am going to remove his NG tube. He can have clear liquids. Risk and benefits to the upper endoscopy were reviewed in great detail with the patient and the patient agrees to proceed.
[2018-10-25] MEDS: 0.9% Normal Saline 1,000 ML 100 ML IV ×2 (08:58→18:51)
--- NOTE | 2018-10-25 13:19 | CHAPLAIN ---
Type of Pastoral Visit _x__ Initial Visit ___ Follow-up Visit ___ On-call Visit ___ General Patient Visit ___ Spiritual Assessment ___ Family Conference ___ Bereavement ___ Rapid Response ___ Code Blue ___ Other (describe below) Pastoral Care Referral From _x__ Patient _x__ Family ___ Nurse ___ Physician ___ Federal Judge ___ [place] [place] ___ Other (describe below) Sacrament/Intervention _x__ Active listening ___ Anointing ___ Holiness _x__ Bereavement ___ Communion ___ Meli exploration ___ ___ Life review _x__ Prayer ___ Reconciliation ___ Sacrament of Sick _x__ Supportive presence ___ Wedding ___ Other (describe below) Pastoral Comments
--- NOTE | 2018-10-25 13:41 | CASEMGMT ---
RN VENKATESH Note. Pt has Living Will and POA papers on file. is listed as first agent-she is , Elsy Osborn, daughter is listed as Alternate Agent, however this is not showing on Demographic Sheet. RN VENKATESH spoke with pt and daughter in ICU. they had planned to see senior attorney to update DPOA papers today, however pt is in hospital. Verified elsy's address and phone number is current. Also notified that updated DPOA papers can be completed in the hospital and added to his file if pt would like to complete here. -Call to Mookie in Registration and he is adding to her file so it will show up on demographic sheet. -Updated Face Sheet to Sg. Natacha RIDDLE RN ACM
--- NOTE | 2018-10-25 16:16 | NURSING ---
report called to RUNNING INSTRUCTOR, Shaun. to PCU 123 per WC
--- NOTE | 2018-10-25 18:34 | PCM.PN.HOSP ---
Patient Problems: Active and Suspected Problems (Last Reviewed 10/25/18 @ 08:03 by Abraham Amor MD) GI bleed (Acute) Closed head injury (Acute) Fall (Acute) Subjective: Was much better today had his NG tube removed by surgery and was started on clears not had any further bright red emesis Vitals/I&O's: Vital Signs Temp Pulse Resp BP Pulse Ox 98 F 84 16 138/71 H 99 10/25/18 16:52 10/25/18 16:52 10/25/18 16:52 10/25/18 16:52 10/25/18 16:52 Oxygen Delivery Method Room Air Weight: 125 lb 0.034 oz Body Mass Index (BMI) 19.8 Intake and Output for Last 24 Hours 10/23/18 10/24/18 10/25/18 23:59 23:59 23:59 Intake Total 3793.0 / 3793.0 Output Total 1475 / 1475 Balance 2318.0 / 2318.0 General: Alert, Oriented x3, Cooperative, No apparent distress HEENT: Atraumatic, PERRLA, EOMI, Normocephalic Oral: Moist Mucosa Neck: Supple, No JVD, Trachea Midline Lungs: Clear to auscultation, Normal air movement, No rhonchi, No wheeze, No rales Cardiovascular: Regular rate, Regular Rhythm, Normal S1, Normal S2, Murmur - 2/6 ABDOUL Abdomen: Soft, Non Tender, Non-Distended, No Hepato-splenomegaly Extremities: No edema, Capillary Refill Less than 3 Seconds Skin: No rashes, No breakdown Neurological: Neuro grossly intact, Sensory exam intact to light touch and pain Psych/Mental Status: Normal Affect, Appropriate Microbiology Past 72 Hours 10/24/18 21:12 Stool Stool Occult Blood (ANDREA) - Final Laboratory Results 10/24/18 20:18: WBC 10.2, RBC 2.49 L, Hgb 7.8 L, Hct 23.9 L, MCV 96.0 H, MCH 31.3, MCHC 32.6, RDW 13.5, RDW Differential 47.0 H, Plt Count 145 L, MPV 9.6, Immature Gran % (Auto) 0.200, Neut % (Auto) 81.0 H, Lymph % (Auto) 6.6 L, [place] % (Auto) 11.0 H, Eos % (Auto) 0.9, Baso % (Auto) 0.3, Absolute Neuts (auto) 8.2 H, Absolute Lymphs (auto) 0.67 L, Total Counted Not Reportable 10/24/18 20:18: PT 14.6, INR 1.2, APTT 23.8 L 10/24/18 20:18: Sodium 142, Potassium 4.3, Chloride 111 H, Carbon Dioxide 26.0, Anion Gap 5, BUN 47 H, Creatinine 1.10, Estim Creat Clear Calc 43.30, Est GFR (MDRD) Af Amer 83, Est GFR (MDRD) Non-Af 69, BUN/Creatinine Ratio 42.7 H, Glucose 114 H, Calcium 7.7 L, Troponin I < 0.015 10/24/18 20:18: Blood Type A POSITIVE, Antibody Screen NEGATIVE, Crossmatch See Detail 10/24/18 23:30: Hgb 7.1 L, Hct 21.6 L 10/25/18 05:40: WBC 6.3, RBC 2.52 L, Hgb 8.0 L, Hct 24.1 L, MCV 95.6 H, MCH 31.7, MCHC 33.2, RDW 13.6, RDW Differential 46.9 H, Plt Count 125 L, MPV 10.1, Immature Gran % (Auto) 0.200, Neut % (Auto) 79.0 H, Lymph % (Auto) 9.5 L, [place] % (Auto) 9.4, Eos % (Auto) 1.4, Baso % (Auto) 0.5, Absolute Neuts (auto) 5.0, Absolute Lymphs (auto) 0.60 L, Total Counted Not Reportable 10/25/18 05:40: Sodium 145, Potassium 3.7, Chloride 113 H, Carbon Dioxide 24.0, Anion Gap 8, BUN 27 H, Creatinine 0.63 L, Estim Creat Clear Calc 49.61, Est GFR (MDRD) Af Amer 158, Est GFR (MDRD) Non-Af 130, BUN/Creatinine Ratio 42.7 H, Glucose 88, Calcium 7.0 L Current Medications Sodium Chloride () 1,000 mls @ 100 mls/hr IV .Q10H NORBERTO Last Admin: 10/25/18 08:58 Dose: 100 mls/hr Pantoprazole Sodium 80 mg/ (Sodium Chloride) 100 mls @ 10 mls/hr CONT INF Q10H NORBERTO Last Admin: 10/25/18 09:19 Dose: 10 mls/hr Sodium Chloride () 250 mls @ 15 mls/hr IV .[id number] PRN PRN Reason: SALINE FLUSH Sodium Chloride () 250 mls @ 15 mls/hr IV .[id number] PRN PRN Reason: SALINE FLUSH Last Admin: 10/25/18 02:05 Dose: 15 mls/hr Ondansetron HCl (Zofran) 4 mg IV Q6H PRN PRN PRN Reason: NAUSEA/VOMITING Sodium Chloride () 5 - 15 ml IV UD PRN PRN Reason: SALINE FLUSH Last Admin: 10/25/18 00:00 Dose: 10 ml Medical Necessity - Tobacco Use Smoking Status: Never smoker Assessment/Plan All Active Problems (Last Reviewed 10/25/18 @ 08:03 by Abraham Amor MD) GI bleed (Acute) Closed head injury (Acute) Fall (Acute) 1. Upper GI bleed/acute blood loss anemia secondary to upper GI bleed -NG tube is out per surgery, will continue with PPI -Hemoglobin is stable at 8 -Plan for EGD tomorrow -Status post 1 unit PRBCs -Continue with IV fluids 2. Recent fall with closed head trauma -Not remember why he fell or how -CT brain and C-spine were negative for fractures 3. Carotid artery stenosis -Continue with aspirin and Lipitor DVT: SCDs Code Visit Inpatient E&M: 11525 Subs Hosp L2
[2018-10-26] VITALS (14 sets, daily range): BP systolic 88–138; BP diastolic 50–71; PULSE 77–129; RESP 16–18; TEMP 36.3–36.9; O2SAT 98–100; BMI 20.1
[2018-10-26] MEDS: 0.9% Normal Saline 1,000 ML 100 ML IV (04:24)
[2018-10-26 05:31] LABS: Absolute Lymphocyte Count 0.59 X10^3/ul (0.83-4.51); Absolute Neutrophil Count 4.8 X10^3/uL (2.0-7.7); Basophil# 0.03 X10^3/uL; Basophil% 0.5 % (0-1); Eosinophil# 0.16 X10^3/uL; Eosinophils% 2.5 % (0-5); Hemoglobin 7.9 g/dl (13.0-16.5); Lymphocyte # 0.59 X10^3/ul (4.0); Lymphocyte % 9.2 % (19-41); Mean Corp Hgb Conc 32.9 g/gl (32-36); Mean Corpuscular Hgb 31.6 pg (27.0-32.0); Mean Platelet Vol. 9.6 fl (6.2-12.0); Monocyte# 0.83 X10^3/uL; Monocyte% 12.9 % (0-10); Neutrophil % 74.7 % (47-70); Platelet Count 133 K/mm3 (150-450); RBC Distribution Width CV 13.7 % (11.6-14.6); RBC Distribution Width SD 47.4 fl (35.1-43.9); White Blood Count 6.4 K/mm3 (4.4-11.0)
[2018-10-26 05:36] LABS: Differential Indicated SCAN CRITERIA MET; POSITIVE COUNT NO; POSITIVE DIFFERENTIAL YES; POSITIVE MORPHOLOGY NO
[2018-10-26 05:40] LABS: Anion Gap 6 (5-15); BUN 10 mg/dL (7-18); BUN/Creat Ratio 16.9 RATIO (10-20); Calcium,Total 7.5 mg/dL (8.5-10.1); Chloride 111 mmol/L (98-107); Creatinine, Serum 0.59 mg/dL (0.70-1.30); EST Glomerular Filtration Rate 141 mL/min (>60); Est Glom Filt Rate - Afr Amer 170 mL/min (>60); Estimated Creatinine Clearance 49.61 ml/min; Glucose 93 mg/dL (74-106); Potassium 3.8 mmol/L (3.5-5.1); Sodium Level 144 mmol/L (136-145)
[2018-10-26 05:48] LABS: International Normalized Ratio 1.2; Prothrombin Time (Protime)PT. 14.7 SECONDS (11.7-14.9)
[2018-10-26 05:49] LABS: Partial Thromboplast Time 28.8 Seconds (24.1-36.2)
[2018-10-26] MEDS: 0.9% NaCl Peripheral Flush Adult/Peds IV (06:18)
--- NOTE | 2018-10-26 07:00 | EGD_PTH ---
PATIENT: DON SCHWARZ LOC: [facility] U#:[id number] AGE/SX: 78/M ROOM: [facility] RE10/24/[address]: Dr. Yaakov Riley MD : 1940 BED: 1 DIS: 10/26/2018 SPEC #: [id number] RECD: 10/26/18 08:00 STATUS: BRIANNA CHRISTOPHE #: [id number] FABIAN: 10/26/18 07:[address]: Abraham Amor DEPT: SURGICAL PATHOLOGY RECD BY: Manju Cleaning ENTERED: 10/26/18 08:31 SP TYPE: EGD BIOPSY OT DR: MD Dr. Yaakov Figueroa MD Dr. Scott Hannan, MD Tissues: Esophageal mucous membrane Procedures: PAS Fungus (control) Special Stain Group I Surgery Specimen Level IV HEADER OPERATION: EGD (MAC) PRE-OP DIAGNOSIS: GI bleed, anemia TISSUE SUBMITTED: Distal esophageal biopsy MICROSCOPIC DIAGNOSIS Distal esophagus, biopsy: Acute esophagitis with associated reactive epithelial atypia. Negative for fungal organisms. See comment. AM:eddie 10/27/18 COMMENT Clinical correlation is suggested. PASF stain with matched control supports the above diagnosis. MICROSCOPIC DESCRIPTION Slides are reviewed. GROSS DESCRIPTION Received in fixative is one container labeled with the patient's name and designated distal esophageal biopsy. The specimen consists of multiple irregular fragments of light barajas soft tissue that in aggregate measure 0.5 x 0.4 x 0.1 cm. The specimen is totally submitted in one cassette. / SJ:eddie 10/26/18 TC:2 CPT: 11322
--- NOTE | 2018-10-26 07:16 | OP.ENDO_ITS ---
10/26/2018 Pedrito Fernandez Re : Upper GI endoscopy procedure for Jigar Garza Dear Jim This procedure was performed on Friday, October 26, 2018. My impressions and recommendations are as follows: Impressions : - LA Grade C reflux esophagitis. Rule out Justice's esophagus. Biopsied. - 4 cm hiatal hernia. No specimens collected. - Normal examined duodenum. No specimens collected. - Normal examined duodenum. No specimens collected. Recommendations : - Return patient to [facility] for ongoing care. - Full liquid diet. - Continue present medications. - Await pathology results. - Repeat upper endoscopy in 3 months to evaluate the response to therapy. - Return to my office in 1 week. My findings are described in the full procedure note, which is enclosed. If I can be of further assistance, please feel free to contact me at Doctor phone number(s): , Fax: [phone], Work: . Sincerely, MD Abraham Peñaloza MD 10/26/2018 7:15:48 AM This report has been signed electronically.
--- NOTE | 2018-10-26 07:51 | CASEMGMT ---
RN VENKATESH ASSESSMENT Presentation: presented with hematemesis and fall. Daughter is a nurse. Introduced role of CM to patient and his daughter. Pt is sitting in chair and able to participate in assessment. Demographics verified. Per daughter, family lives nearby and can assist. Pt was generally independent at home. PCP: Dr. Lucas Pharmacy: [facility] Prescription coverage: yes Living arrangements: Pt lives in one story home with ramp to entryway. Uses cane baseline when ambulating outside. Pt states he is generally independent with ADL's prior to this fall. DME: wheeled walker, cane, shower chair. Home Health: none, RN VENKATESH discussed with pt/daughter for PT/OT on discharge. Pt is reluctant and stated let's see how I'm doing. Daughter stated due to his bowed legs, there's not a whole lot they can do. PT/OT: recommending therapy at home. DC PLAN: anticipate home on dc. Pt may be agreeable to home health through [facility] (they do accept his insurance per Angie @ [facility]) closer to dc. Natacha MARINAN RN ACM
--- NOTE | 2018-10-26 11:51 | CASEMGMT ---
Therapy is recommending [facility] at this time. This RN CM to speak with pt/daughter, pt is agreeable to [facility] at this time but is concerned about prather, etc. Call to Angie at [facility] and she states that they are able to take pt at this time for PT/OT and that they will call daughter with any co-pays etc. prior to coming out. Order placed at this time. Refugio MONTAGUE CM
--- NOTE | 2018-10-26 12:17 | DCINST_ITS ---
- Discharge Diagnoses Current Active Problems: Current Active and Chronic Problems (Last Reviewed 10/25/18 @ 08:03 by Abraham Amor MD) GI bleed (Acute) Closed head injury (Acute) Fall (Acute) Systolic murmur (Chronic) You will use the following diet at home:: Cardiac Your food should be the consistency of: Regular Your liquids should be the consistency of: Regular/Thin Discharge Activity: Return to Normal Activity, No Restrictions Call your doctor if you observe: Fever of 101 or Higher, Shortness of breath, Dizziness, Fainting spells, Swelling in the ankles, Chest pain, Increased palpitations (irregular heartbeat) Allergies/Adverse Reactions: Allergies Penicillins Adverse Reaction (Verified 10/24/18 20:04) Unknown Medications to take at Discharge atorvastatin 10 mg tablet 10 mg PO QDAY #90 tab 02/03/18 multivitamin capsule 1 cap PO QAM 02/03/18 Ascorbic Acid [Vitamin C] 500 mg PO BID #0 10/26/18 Aspirin [Aspirin, Baby] 81 mg PO DAILY #0 10/26/18 Ferrous Sulfate 325 mg PO BID #60 tablet 10/26/18 Pantoprazole Sodium [Protonix] 40 mg PO BID #60 tablet 10/26/18 Sucralfate [Carafate] 1 gm PO 4X/DAY #120 tablet 10/26/18 The following prescriptions were given: Ferrous Sulfate 325 mg PO BID #60 tablet Pantoprazole Sodium [Protonix] 40 mg PO BID #60 tablet Sucralfate [Carafate] 1 gm PO 4X/DAY #120 tablet Primary Care Physician: Pedrito Fernandez MD [Primary Care Provider] - Please follow up with your Primary Care Physician in: 3-5 days Test Results: Test results from this visit will be discussed in further detail at your follow- up appointment, if applicable. Please Follow Up With: Abraham Amor MD When: 2 weeks
--- NOTE | 2018-10-26 12:17 | PCM.DC.SUM ---
Discharge Date and Diagnosis - Problem List Patient Problems: Active and Suspected Problems (Last Reviewed 10/25/18 @ 08:03 by Abraham Amor MD) GI bleed (Acute) Closed head injury (Acute) Fall (Acute) Date of Admission: 10/24/18 Date of Discharge: 10/26/18 - Primary Discharge Diagnosis Active and Suspected Problems (Last Reviewed 10/25/18 @ 08:03 by Abraham Amor MD) GI bleed (Acute) Closed head injury (Acute) Fall (Acute) - Secondary Discharge Diagnosis Chronic Problems (Last Reviewed 10/25/18 @ 08:03 by Abraham Amor MD) Systolic murmur (Chronic) Non-rheumatic tricuspid valve insufficiency (Chronic) Nonrheumatic aortic valve insufficiency (Chronic) Carotid bruit (Chronic) Left carotid artery stenosis (Chronic) Hospital Course and Treatment Imaging Results: CT Brain: IMPRESSION: 1. No acute intracranial hemorrhage or mass effect. 2. Central parenchymal volume loss. White matter changes that are nonspecific but most commonly associated with chronic small vessel ischemic disease. CT C-spine: IMPRESSION: 1. No cervical spine fracture. 2. Exaggerated cervical lordosis. 3. Degenerative changes, as above. CT Face: IMPRESSION: No maxillofacial/orbital fracture. Left infraorbital soft tissue swelling. Consults: General Surgery Operations: None Procedures: EGD - Impressions : - LA Grade C reflux esophagitis. Rule out Justice's esophagus. Biopsied. - 4 cm hiatal hernia. No specimens collected. - Normal examined duodenum. No specimens collected. - Normal examined duodenum. No specimens collected. Recommendations : - Return patient to [facility] for ongoing care. - Full liquid diet. - Continue present medications. - Await pathology results. - Repeat upper endoscopy in 3 months to evaluate the response to therapy. - Return to my office in 1 week. Summary of Care Provided: Per HPI: The patient is a 78 year old M with past medical history as mentioned above presented to the emergency room because of hematemesis and fall. Patient's daughter who is a nurse was at the bedside and she states that the main presenting complaint today is because he vomited blood once this evening. The vomitus was bright red blood, moderate to large amount, associated with mild dizziness and without aggravating or relieving factors. His daughter mentioned that he complained that his stool has been dark over the last several days. He denied abdominal pain, constipation or diarrhea. 3 days ago, patient had a fall and he is not sure why he fell and he did not seek medical attention. He does not remember if he was dizzy or lightheaded. He denied chest pain or shortness of breath. In the emergency department, patient was afebrile, tachycardic, blood pressure was stable and pulse ox was 98% on room air. Routine blood work was remarkable for hemoglobin of 7.8 g/dL, BUN of 47, otherwise normal. EKG revealed normal sinus rhythm without evidence of acute ischemic changes. Troponin was negative. CTA head done because of the mechanical fall and showed no acute findings. CT scan cervical spine showed no acute fracture or dislocation. Because of the periorbital ecchymosis, x-ray of the facial bones and sinuses done and showed no acute fractures. Chest x-ray showed no infiltrate, consolidation or effusion. KUB done after insertion of NG tube and showed that the tip of the tube is in the stomach. He is being admitted for GI bleed likely upper GI bleed, acute blood loss anemia and recent mechanical fall with closed head trauma. Hospital Course: 1. Upper GI bleed/acute blood loss anemia secondary to upper GI bleed/mechanical [id number] male very minor past medical history presenting with hematemesis and a fall. Workup of his facial trauma was negative for any acute fracture. He was found to be anemic and necessitate a unit of PRBCs to be transfused. His hemoglobin has remained stable at 8, and he underwent an EGD which demonstrated no acute bleeding source, however he did have severe gastritis. He will be discharged on Protonix twice daily as well as Carafate. Also because of his acute blood loss anemia will start him on iron supplementation twice a day with vitamin C which she already takes. He will need a repeat EGD in 3 months. Recommend that he follow-up with his PCP in 3-5 days and recheck a hemoglobin at that time. 2. His other medical diagnoses were evaluated and his home medications were continued where appropriate Patient Problems: Active and Suspected Problems (Last Reviewed 10/25/18 @ 08:03 by Abraham Amor MD) GI bleed (Acute) Closed head injury (Acute) Fall (Acute) Objective: General: Alert, Oriented x3, Cooperative, No apparent distress HEENT: Atraumatic, PERRLA, EOMI, Normocephalic Oral: Moist Mucosa Neck: Supple, No JVD, Trachea Midline Lungs: Clear to auscultation, Normal air movement, No rhonchi, No wheeze, No rales Cardiovascular: Regular rate, Regular Rhythm, Normal S1, Normal S2, Murmur - 2/6 ABDOUL Abdomen: Soft, Non Tender, Non-Distended, No Hepato-splenomegaly Extremities: No edema, Capillary Refill Less than 3 Seconds Skin: No rashes, No breakdown Neurological: Neuro grossly intact, Sensory exam intact to light touch and pain Psych/Mental Status: Normal Affect, Appropriate - Physical Exam Vital Signs Temp Pulse Resp BP Pulse Ox 97.9 F 100 18 138/63 H 98 10/26/18 08:50 10/26/18 09:35 10/26/18 08:50 10/26/18 08:50 10/26/18 11:25 Oxygen Delivery Method Room Air Weight: 125 lb 0.034 oz Body Mass Index (BMI) 20.1 Intake and Output for Last 24 Hours 10/24/18 10/25/18 10/26/18 23:59 23:59 23:59 Intake Total 3793.0 / 3793.0 1850 / 1850 Output Total 2175 / 2175 300 / 300 Balance 1618.0 / 1618.0 1550 / 1550 Microbiology Past 72 Hours 10/24/18 21:12 Stool Occult Blood (ANDREA) - Final Stool Laboratory Tests Past 24 Hrs 10/26/18 10/26/18 10/26/18 05:13 05:13 05:13 WBC 6.4 RBC 2.50 L Hgb 7.9 L Hct 24.0 L MCV 96.0 H MCH 31.6 MCHC 32.9 RDW 13.7 RDW Differential 47.4 H Plt Count 133 L MPV 9.6 Immature Gran % (Auto) 0.200 Neut % (Auto) 74.7 H Lymph % (Auto) 9.2 L Tripp % (Auto) 12.9 H Eos % (Auto) 2.5 Baso % (Auto) 0.5 Absolute Neuts (auto) 4.8 Absolute Lymphs (auto) 0.59 L Total Counted Not Reportable Differential Comment PT 14.7 INR 1.2 APTT 28.8 Sodium 144 Potassium 3.8 Chloride 111 H Carbon Dioxide 27.0 Anion Gap 6 BUN 10 Creatinine 0.59 L Estim Creat Clear Calc 49.61 Est GFR (MDRD) Af Amer 170 Est GFR (MDRD) Non-Af 141 BUN/Creatinine Ratio 16.9 Glucose 93 Calcium 7.5 L Discharge Activity: Return to Normal Activity, No Restrictions Call your doctor if you observe: Fever of 101 or Higher, Shortness of breath, Dizziness, Fainting spells, Swelling in the ankles, Chest pain, Increased palpitations (irregular heartbeat) Home Medications: Medications to take at Discharge atorvastatin 10 mg tablet 10 mg PO QDAY #90 tab 02/03/18 multivitamin capsule 1 cap PO QAM 02/03/18 Ascorbic Acid [Vitamin C] 500 mg PO BID #0 10/26/18 Aspirin [Aspirin, Baby] 81 mg PO DAILY #0 10/26/18 Ferrous Sulfate 325 mg PO BID #60 tablet 10/26/18 Pantoprazole Sodium [Protonix] 40 mg PO BID #60 tablet 10/26/18 Sucralfate [Carafate] 1 gm PO 4X/DAY #120 tablet 10/26/18 Following Prescrptions Were Given to Patient: Ferrous Sulfate 325 mg PO BID #60 tablet Pantoprazole Sodium [Protonix] 40 mg PO BID #60 tablet Sucralfate [Carafate] 1 gm PO 4X/DAY #120 tablet Primary Care Physician: Pedrito Fernandez MD [Primary Care Provider] - Please follow up with your Primary Care Physician in: 3-5 days Please Follow Up With: Abraham Amor MD When: 2 weeks Pending Tests Upon Discharge: CBC 3-5 days Disposition: Home Minutes spent on discharge:: 35 Patient Condition:: Stable Medical Necessity - Tobacco Use Smoking Status: Never smoker Meaningful Use Info Meaningful Use Diagnoses (Choose all that apply): None applicable Code Visit Inpatient E&M: 51320 Disch Hosp
--- NOTE | 2018-10-26 13:17 | PHA.DC.MC ---
Pharmacy Service has performed discharge medication reconciliation and counseling for this patient. The patient's discharge medication list was reviewed for discrepancies and discrepancies were resolved. The patient was counseled on the following discharge medications and changes in medications for homegoing were reviewed. Ferrous Sulfate 325 mg PO BID #60 tablet 10/26/18 Pantoprazole Sodium [Protonix] 40 mg PO BID #60 tablet 10/26/18 Sucralfate [Carafate] 1 gm PO 4X/DAY #120 tablet 10/26/18 The Reason for Use, instructions for use, and potential side effects were reviewed for all new medications. The patient's questions regarding all of their medications were answered. The patient demonstrated some understanding but would benefit from further education and reinforcement. Home Medications atorvastatin 10 mg tablet 10 mg PO QDAY #90 tab 02/03/18 multivitamin capsule 1 cap PO QAM 02/03/18 Ascorbic Acid [Vitamin C] 500 mg PO BID #0 10/26/18 Aspirin [Aspirin, Baby] 81 mg PO DAILY #0 10/26/18 Ferrous Sulfate 325 mg PO BID #60 tablet 10/26/18 Pantoprazole Sodium [Protonix] 40 mg PO BID #60 tablet 10/26/18 Sucralfate [Carafate] 1 gm PO 4X/DAY #120 tablet 10/26/18
--- NOTE | 2018-10-27 14:04 | CASEMGMT ---
[facility] Discharge F/U Phone Call LACE: 10 Strata: 3 Discharge date: 10/26/18 Call date: 10/27/18 Call time: [id number] Duration: 4 minutes Admission dx: GI Bleed Pt's daughter, Elsy, answered phone and answered all questions for pt's at this time. She states no questions regarding d/c instructions/medications at this time. She states that pt has f/u appt's scheduled and they plan to keep. She states that [facility] is supposed to come out tomorrow sometime and she requests their number at this time to see if she can figure out what time they will be there and number provided. Daughter voices no suggestions for WC at this time. Daughter voices no further questions/concerns/needs at this time. [facility]
== END 2018-10-26 13:15 | disposition home health service (06) | DRG 378 ==
LOC: ED 22:35 → ICU 22:56 → PCU 10-25 16:34
PROVIDERS: Anesthesiology; Surgery; Admitting Provider Hospitalist; Emergency Provider Emergency Medicine; Family Provider Family Medicine; PCP Family Medicine; Referring Provider Hospitalist; Visit Provider Family Medicine
PROC: 0DJ08ZZ Inspection of Upper Intestinal Tract, Via Natural or Artificial Opening Endoscopic (ICD-10-PCS; CPT 43235; principal; 2018-10-26 06:55)
DX: K92.2 Gastrointestinal hemorrhage, unspecified (principal); D62 Acute posthemorrhagic anemia; I65.22 Occlusion and stenosis of left carotid artery; Z66 Do not resuscitate; K44.9 Diaphragmatic hernia without obstruction or gangrene; I35.1 Nonrheumatic aortic (valve) insufficiency; K21.0 Gastro-esophageal reflux disease with esophagitis; I36.1 Nonrheumatic tricuspid (valve) insufficiency; S09.90XA Unspecified injury of head, initial encounter; W10.8XXA Fall (on) (from) other stairs and steps, initial encounter; Y92.018 Other place in single-family (private) house as the place of occurrence of the external cause
CPT/HCPCS: 36415; 70450; 70486; 71045; 72125; 74018; 80048; 82274; 84484; 85014; 85018; 85025; 85610; 85730; 86850; 86900; 86920; 86922; 88305; 88312; 93005; 97162; 97166; 99285; J7030; J7040; J7050; P9016; A4216

== ENCOUNTER → 2018-11-29 16:39 | Outpatient (CLI) | payer MEDICARE, SELFPAY ==
[2018-11-11 15:11] VITALS: BMI 20.1
[2018-11-29 17:47] LABS: Absolute Lymphocyte Count 0.69 X10^3/ul (0.83-4.51); Absolute Neutrophil Count 2.9 X10^3/uL (2.0-7.7); Basophil# 0.06 X10^3/uL; Basophil% 1.4 % (0-1); Eosinophil# 0.25 X10^3/uL; Eosinophils% 5.7 % (0-5); Hematocrit 37.2 % (40-54); Hemoglobin 11.9 g/dl (13.0-16.5); Lymphocyte # 0.69 X10^3/ul (4.0); Lymphocyte % 15.9 % (19-41); Mean Corpuscular Hgb 30.7 pg (27.0-32.0); Mean Corpuscular Volume 95.9 fL (80-94); Mean Platelet Vol. 10.3 fl (6.2-12.0); Monocyte# 0.47 X10^3/uL; Monocyte% 10.8 % (0-10); Neutrophil # 2.87 X10^3/uL (2.7-7.7); Platelet Count 256 K/mm3 (150-450); RBC Distribution Width CV 13.8 % (11.6-14.6); RBC Distribution Width SD 46.3 fl (35.1-43.9); Red Blood Count 3.88 M/mm3 (4.6-6.2); White Blood Count 4.4 K/mm3 (4.4-11.0)
[2018-11-29 17:48] LABS: POSITIVE COUNT NO; POSITIVE DIFFERENTIAL NO; POSITIVE MORPHOLOGY NO
[2018-11-29 18:12] LABS: ALB/GLOB Ratio 1.1 RATIO (0.9-2.4); AST(SGOT) 28 U/L (15-37); Alanine Aminotransfer ALT/SGPT 58 U/L (16-61); Albumin, Serum 3.5 g/dL (3.2-5.0); Alkaline Phosphatase 83 U/L (45-117); Anion Gap 6 (5-15); BUN 24 mg/dL (7-18); BUN/Creat Ratio 27.8 RATIO (10-20); Calcium,Total 8.6 mg/dL (8.5-10.1); Chloride 106 mmol/L (98-107); Creatinine, Serum 0.86 mg/dL (0.70-1.30); EST Glomerular Filtration Rate 91 mL/min (>60); Est Glom Filt Rate - Afr Amer 110 mL/min (>60); Ferritin 45 ng/mL (26-388); Globulin 3.1 g/dL (2.2-4.2); Glucose 100 mg/dL (74-106); Iron 164 ug/dL (65-175); Potassium 4.3 mmol/L (3.5-5.1); Protein, Total 6.6 g/dL (6.4-8.2); Sodium Level 139 mmol/L (136-145); T4 Free Direct 1.08 ng/dL (0.76-1.46); Thyroid Stim Hormone (TSH) 1.23 uIU/mL (0.358-3.74)
== END ==
PROVIDERS: Family Provider Family Medicine; PCP Family Medicine; Visit Provider Family Medicine
DX: D50.9 Iron deficiency anemia, unspecified (principal); K92.2 Gastrointestinal hemorrhage, unspecified; R01.1 Cardiac murmur, unspecified; R53.83 Other fatigue; R60.9 Edema, unspecified
CPT/HCPCS: 36415; 80053; 82728; 83540; 84439; 84443; 85025

== ENCOUNTER → 2018-12-20 11:03 | Outpatient (CLI) | payer MEDICARE, SELFPAY ==
[2018-11-11 15:11] VITALS: BMI 20.1
--- NOTE | 2018-12-20 11:07 | ECHOD_ITS ---
Reason For Study: Known AI Procedure This was a 2D Doppler, Color Flow transthoracic echocardiogram. Exam performed in department. Left Ventricle Normal LV size. Left ventricular systolic function is normal. The estimated ejection fraction is 65 %. Stage 1 diastolic dysfunction. No regional wall motion abnormalities noted. Right Ventricle Normal RV size. Normal systolic function. Atria Normal left atrium. Normal right atrium. Mitral Valve Bileaflet diffuse mitral valve thickening. Mild focal mitral valve calcification, bileaflet. Mild (1+) eccentric mitral valve insufficiency. Tricuspid Valve Normal tricuspid valve. Mild tricuspid valve insufficiency. Pulmonary artery systolic pressure is 34 mmHg. Aortic Valve Trisinus/trileaflet aortic valve. Moderate focal aortic valve calcification. Peak aortic valve gradient 48 mmHg. Mean aortic valve gradient 28 mmHg. Moderate aortic stenosis. Calculated aortic valve area (continuity equation) is 1.0 cm2. Pulmonic Valve Normal pulmonic valve. Great Vessels Normal aortic root. The pulmonary artery is normal size. Normal inferior vena cava. Pericardium/Pleural No pericardial effusion. MMode/2D Measurements & Calculations LVIDd: 3.7 cm IVSd: 1.0 cm LVOT diam: 2.0 cm LVIDs: 1.8 cm LVPWd: 1.0 cm LVOT area: 3.0 cm2 RVDd: 4.3 cm FS: 51.2 % Ao root diam: 2.9 cm LAV(MOD-bp): 48.7 ml LVAd ap4: 18.5 cm2 LAV(MOD-bp) Indexed: 29.9 ml/m2 EDV(MOD-sp4): 42.7 ml LAV(MOD-sp2): 44.6 ml EDV(sp4-el): 43.7 ml LAV(MOD-sp4): 44.8 ml LVAs ap4: 9.3 cm2 ESV(MOD-sp4): 13.7 ml ESV(sp4-el): 14.1 ml EF(MOD-sp4): 67.8 % EF(sp4-el): 67.7 % SV(MOD-sp4): 29.0 ml SV(sp4-el): 29.6 ml LA A4 area: 16.1 cm2 LA dimension(2D): 3.9 cm RA A4 area: 12.5 cm2 Doppler Measurements & Calculations MV E max [place]: 92.2 cm/sec Lat Peak E' [place]: 6.8 cm/sec Med Peak E' [place]: 5.5 cm/sec MV A max [place]: 118.6 cm/sec E/E' lat: 13.5 E/E' med: 16.8 MV E/A: 0.78 Ao V2 max: 347.8 cm/sec AI max [place]: 298.0 cm/sec LV V1 max: 112.2 cm/sec Ao max P.4 mmHg AI max P.5 mmHg LV V1 max P.0 mmHg Ao V2 mean: 255.9 cm/sec LV V1 mean P.7 mmHg Ao mean P.3 mmHg AI dec slope: 266.3 cm/sec2 LV V1 mean: 78.8 cm/sec Ao V2 VTI: 80.9 cm AI P1/2t: 327.8 msec LV V1 VTI: 26.3 cm JAMIN(I,D): 0.97 cm2 JAIMN(V,D): 0.96 cm2 SV(LVOT): 78.4 ml PA V2 max: 106.9 cm/sec TR max dak[place]: 274.0 cm/sec TR max P.0 mmHg Interpretation Summary Normal LV size. Left ventricular systolic function is normal. The estimated ejection fraction is 65 %. Stage 1 diastolic dysfunction. Bileaflet diffuse mitral valve thickening. Moderate focal aortic valve calcification. Moderate aortic stenosis. Calculated aortic valve area (continuity equation) is 1.0 cm2. The aortic valve area is narrower Compared to prior study, changes are noted. Ordering Physician: Pedrito Fernandez Referring Physician: Pedrito Fernandez Performed By: Valeria Johnson, DEBORAH, RVT
== END ==
PROVIDERS: Family Provider Family Medicine; PCP Family Medicine; Referring Provider Family Medicine; Visit Provider Family Medicine
DX: I35.1 Nonrheumatic aortic (valve) insufficiency (principal); R60.9 Edema, unspecified
CPT/HCPCS: 93306

== ENCOUNTER → 2019-03-11 07:45 | Outpatient (CLI) | payer MEDICARE, SELFPAY ==
[2019-02-01 13:01] VITALS: BMI 25.0
[2019-03-11 08:25] LABS: AST(SGOT) 22 U/L (15-37); Alanine Aminotransfer ALT/SGPT 33 U/L (16-61); Albumin, Serum 3.5 g/dL (3.2-5.0); Alkaline Phosphatase 95 U/L (45-117); Anion Gap 5 (5-15); BUN 19 mg/dL (7-18); BUN/Creat Ratio 19.3 RATIO (10-20); Bilirubin, Direct 0.12 mg/dL (0.00-0.30); Calcium,Total 8.6 mg/dL (8.5-10.1); Chloride 106 mmol/L (98-107); Cholesterol 167 mg/dL (200); Creatinine, Serum 0.98 mg/dL (0.70-1.30); EST Glomerular Filtration Rate 78 mL/min (>60); Est Glom Filt Rate - Afr Amer 95 mL/min (>60); Globulin 3.4 g/dL (2.2-4.2); Glucose 90 mg/dL (74-106); High Density Lipoprotein 51 mg/dL; Potassium 3.9 mmol/L (3.5-5.1); Protein, Total 6.9 g/dL (6.4-8.2); Sodium Level 140 mmol/L (136-145); Triglycerides 89 mg/dL; Very Low Density Lipoprotein 18 mg/dL (5-40)
== END ==
PROVIDERS: Family Provider Family Medicine; PCP Family Medicine; Referring Provider Internal Medicine Cardiovascular Disease; Visit Provider Internal Medicine Cardiovascular Disease
DX: R60.0 Localized edema (principal); I65.22 Occlusion and stenosis of left carotid artery; I35.1 Nonrheumatic aortic (valve) insufficiency; I36.1 Nonrheumatic tricuspid (valve) insufficiency
CPT/HCPCS: 36415; 80048; 80061; 80076

== ENCOUNTER → 2019-04-11 09:44 | Outpatient (CLI) | payer MEDICARE, SELFPAY ==
[2019-02-01 13:01] VITALS: BMI 25.0
--- NOTE | 2019-04-11 09:47 | RAD_ITS ---
STUDY: X-RAY CHEST REASON FOR EXAM: Male, 79 years old. Fever, cough, leg weakness TECHNIQUE: PA and lateral chest COMPARISON: None. FINDINGS: 88-year-old the left midlung. Features of COPD/emphysema. Normal cardiomediastinal silhouette, ramsey and pleural margins. No acute osseous or upper abdominal process. RAD/Chest PA and Lateral IMPRESSION: Hazy opacity left midlung spanning approximately 2.97 cm. Infiltrate versus malignancy. CT chest recommended. Electronically Signed: Ej Smith MD at 11:39 EDT Tel , Service support ,
[2019-04-11 12:21] LABS: Absolute Lymphocyte Count 0.29 X10^3/uL (0.83-4.51); Absolute Neutrophil Count 3.3 X10^3/uL (2.0-7.7); Basophil# 0.04 X10^3/uL; Basophil% 0.9 % (0-1); Eosinophil# 0.07 X10^3/uL; Eosinophils% 1.6 % (0-5); Hematocrit 39.1 % (40-54); Hemoglobin 13.1 g/dL (13.0-16.5); Lymphocyte # 0.29 X10^3/ul (4.0); Lymphocyte % 6.5 % (19-41); Mean Corp Hgb Conc 33.5 g/dL (32-36); Mean Corpuscular Volume 89.7 fL (80-94); Mean Platelet Vol. 9.6 fl (6.2-12.0); Monocyte# 0.76 X10^3/uL; NRBC Flagged by Analyzer 0 % (0-5); Neutrophil # 3.28 X10^3/uL (2.7-7.7); Neutrophil % 73.6 % (47-70); POSITIVE DIFFERENTIAL YES; Platelet Count 222 K/mm3 (150-450); RBC Distribution Width CV 14.2 % (11.6-14.6); RBC Distribution Width SD 46.5 fl (35.1-43.9); Red Blood Count 4.36 M/mm3 (4.6-6.2); White Blood Count 4.5 K/mm3 (4.4-11.0)
[2019-04-11 12:22] LABS: Differential Indicated SCAN CRITERIA MET
[2019-04-11 12:26] LABS: Anion Gap 5 (5-15); BUN 17 mg/dL (7-18); BUN/Creat Ratio 18.2 RATIO (10-20); Calcium,Total 8.5 mg/dL (8.5-10.1); Chloride 103 mmol/L (98-107); Creatinine, Serum 0.93 mg/dL (0.70-1.30); EST Glomerular Filtration Rate 83 mL/min (>60); Est Glom Filt Rate - Afr Amer 101 mL/min (>60); Glucose 91 mg/dL (74-106); Sodium Level 137 mmol/L (136-145)
== END ==
PROVIDERS: Family Provider Family Medicine; PCP Family Medicine; Referring Provider Family Medicine; Visit Provider Family Medicine
DX: R50.9 Fever, unspecified (principal); R60.9 Edema, unspecified; R05 Cough; R29.898 Other symptoms and signs involving the musculoskeletal system
CPT/HCPCS: 36415; 71046; 80048; 85025

== ENCOUNTER 2019-04-11 20:19 | Inpatient (IN) | payer MEDICARE, SELFPAY ==
[2019-02-01 13:01] VITALS: BMI 25.0
[2019-04-11 20:21] VITALS: BP 150/88; PULSE 116; RESP 20; TEMP 37.2; O2SAT 95; BMI 21.4
--- NOTE | 2019-04-11 20:51 | RAD_ITS ---
STUDY: X-RAY CHEST REASON FOR EXAM: Male, 79 years old. Weakness and shortness of breath TECHNIQUE: Single AP portable view of the chest. COMPARISON: Chest x-ray earlier today and chest x-ray dated October 24, 2018 FINDINGS: Again noted is a subtle hazy opacity in the left midlung field. Possible infection versus malignancy. There is hyperinflation of the lungs consistent with chronic obstructive lung disease (COPD). Lungs are otherwise clear. There is no demonstrated pleural abnormality. Normal size heart. Normal mediastinum and ramsey. Normal visualized pulmonary arteries. Normal visualized aortic arch and descending thoracic aorta. Normal visualized thoracic spine. Normal visualized ribs, clavicles, and shoulders. There is no demonstrated abnormality of the visualized soft tissue structures of the upper abdomen. RAD/Chest 1 View (Portable) IMPRESSION: No significant change in left midlung hazy opacity from this morning. Infection versus malignancy. Again, CT chest is recommended to further evaluate Electronically Signed: Jad Juárez DO at 21:29 EDT Tel , Service support ,
--- NOTE | 2019-04-11 20:51 | EKG12_ITS ---
Test Reason : Blood Pressure : / mmHG Vent. Rate : 116 BPM Atrial Rate : 116 BPM P-R Int : 136 ms QRS Dur : 080 ms QT Int : 322 ms P-R-T Axes : 053 010 035 degrees QTc Int : 447 ms Sinus tachycardia Possible Left atrial enlargement Borderline ECG Confirmed by HENRY LEE, LUIS E ([id number]), online content editor BON RAMÍREZ ([id number]) on 04/14/2019 1:02:33 PM Referred By: Pedrito Fernandez Confirmed By:LUIS E FIGUEROA MD
[2019-04-11 20:57] VITALS: BP 133/90; PULSE 113; RESP 21; O2SAT 95
[2019-04-11 21:02] LABS: Absolute Neutrophil Count 4.4 X10^3/uL (2.0-7.7); Basophil# 0.03 X10^3/uL; Basophil% 0.5 % (0-1); Eosinophil# 0.11 X10^3/uL; Eosinophils% 1.9 % (0-5); Hematocrit 36.9 % (40-54); Hemoglobin 12.5 g/dL (13.0-16.5); Lymphocyte % 5.3 % (19-41); Mean Corp Hgb Conc 33.9 g/dL (32-36); Mean Corpuscular Hgb 29.9 pg (27.0-32.0); Mean Corpuscular Volume 88.3 fL (80-94); Mean Platelet Vol. 9.4 fl (6.2-12.0); Monocyte# 0.87 X10^3/uL; Monocyte% 15.3 % (0-10); NRBC Flagged by Analyzer 0 % (0-5); Neutrophil # 4.35 X10^3/uL (2.7-7.7); Neutrophil % 76.8 % (47-70); POSITIVE DIFFERENTIAL YES; Platelet Count 220 K/mm3 (150-450); RBC Distribution Width CV 14.3 % (11.6-14.6); RBC Distribution Width SD 46.6 fl (35.1-43.9); Red Blood Count 4.18 M/mm3 (4.6-6.2); White Blood Count 5.7 K/mm3 (4.4-11.0)
[2019-04-11 21:06] LABS: International Normalized Ratio 1.1; Partial Thromboplast Time 30.6 Seconds (24.1-36.2); Prothrombin Time (Protime)PT. 14.2 SECONDS (11.7-14.9)
[2019-04-11 21:12] LABS: Differential Indicated SCAN CRITERIA MET
[2019-04-11 21:17] LABS: ALB/GLOB Ratio 0.9 RATIO (0.9-2.4); AST(SGOT) 21 U/L (15-37); Alanine Aminotransfer ALT/SGPT 28 U/L (16-61); Albumin, Serum 3.3 g/dL (3.2-5.0); Alkaline Phosphatase 104 U/L (45-117); Anion Gap 6 (5-15); BUN 21 mg/dL (7-18); BUN/Creat Ratio 20.2 RATIO (10-20); Calcium,Total 8.3 mg/dL (8.5-10.1); Chloride 103 mmol/L (98-107); Creatinine, Serum 1.04 mg/dL (0.70-1.30); EST Glomerular Filtration Rate 73 mL/min (>60); Est Glom Filt Rate - Afr Amer 89 mL/min (>60); Estimated Creatinine Clearance 52.83 ml/min; Globulin 3.6 g/dL (2.2-4.2); Glucose 123 mg/dL (74-106); Potassium 3.6 mmol/L (3.5-5.1); Protein, Total 6.9 g/dL (6.4-8.2); Sodium Level 136 mmol/L (136-145)
[2019-04-11] MEDS: 0.9% Normal Saline 1,000 ML 999 ML IV (21:18)
[2019-04-11 21:21] VITALS: TEMP 37.1
[2019-04-11 21:24] VITALS: BP 159/80; PULSE 99; RESP 16; TEMP 37.1; O2SAT 100
[2019-04-11 21:30] LABS: Differential Comment SCANNED
[2019-04-11 21:37] LABS: Bacteria 0 SEEN /hpf (None Seen); Mucous, Urine 0 SEEN /hpf (<or=2+); Squamous Epithelial Cells - UA 0 SEEN /hpf (0-5); White Blood Cells 0 SEEN /hpf (0-5)
[2019-04-11 21:38] LABS: Color, Urine Yellow (Yellow); Glucose, Dipstick Normal (Normal); Ketone-Dipstick Negative (Negative); Leukocyte Esterase-Dipstick Negative /ul (Negative); Nitrite-Dipstick Negative (Negative); Occult Blood-Urine 25 /ul (Negative); Protein-Dipstick Negative (Negative); Specific Gravity, Urine 1.015 (1.002-1.030); Urine Bilirubin Dipstick Negative (Negative); Urine Clarity Clear (Clear); Urine Urobilinogen Normal (Normal)
[2019-04-11 21:44] LABS: Red Blood Cells-Urine 0-5 SEEN /hpf (0-5)
[2019-04-11 22:00] VITALS: BP 150/79; PULSE 101; RESP 20; TEMP 37.1; O2SAT 99
--- NOTE | 2019-04-11 22:00 | CT_ITS ---
STUDY: CT CHEST WITHOUT CONTRAST REASON FOR EXAM: Male, 79 years old. Mass on chest x-ray, cough RADIATION DOSAGE (If Supplied By Facility): CTDIvol = ( 10.21 ) mGy, DLP = ( 354.67 ) mGycm TECHNIQUE: Transaxial imaging was performed without the administration of intravenous contrast material. Individualized dose optimization techniques were used for this CT. COMPARISON: Chest x-ray same day FINDINGS: Patulous esophagus. Consider esophagram correlation. Hiatal hernia. Left upper lobe pneumonia. Multiple small bibasilar blebs. There is no demonstrated pleural abnormality. Normal heart and pericardium. Normal mediastinum. Normal hilar regions. Normal unenhanced pulmonary arteries. Normal aorta arch and descending thoracic aorta. There are multi-level degenerative changes of the thoracic spine. Multiple gallstones. CT/Chest without Contrast IMPRESSION: Left upper lobe pneumonia. Patulous esophagus. Consider esophagram correlation. Hiatal hernia. Cholelithiasis. Electronically Signed: Paul Johnson MD at 22:31 EDT Tel , Service support ,
--- NOTE | 2019-04-11 22:48 | ED.VIS.GEN ---
History of Present Illness Chief Complaint: General Illness Informant: Patient, Family Onset: Days - 7 Timing: Continuous Current Severity: Moderate Maximum Severity: Moderate Narrative: Patient presents with 7-day history of cough congestion and progressive weakness. He was much worse today. He was seen by PCP this morning and placed on antibiotics. He only had one course. Today he became quite weak and his daughter brought him to the emergency department. He denies any chest pain urinary symptoms abdominal pain. His weakness is generalized and not localized to the lower extremities or ascending. Past Medical History - Allergies and Home Meds Allergies/Adverse Reactions: Allergies Penicillins Adverse Reaction (Verified 04/11/19 20:24) Unknown Primary Care Physician: Pedrito Fernandez MD [Primary Care Provider] - Past Medical History: - - Reviewed Surgical History: herniorrhaphy Smoking Status: Never smoker - Family History Maternal Family History: Family History (Last Reviewed 02/01/19 @ 13:29 by Jaime Oreilly MD) Brother Hypertension Daughter Hypertension Mother Heart disease Family History: Reports: No pertinent history Paternal Family History: Family History (Last Reviewed 02/01/19 @ 13:29 by Jaime Oreilly MD) Brother Hypertension Daughter Hypertension Mother Heart disease Family History: Reports: No pertinent history Review of Systems All systems negative except as indicated General: Reports: Malaise. Denies: Fever Cardiovascular: Denies: Chest pain, Palpitations Respiratory: Reports: Dyspnea, Cough, Sputum Gastrointestinal: Denies: Abdominal pain, Nausea, Vomiting Genitourinary: Denies: Dysuria Musculoskeletal: Denies: Myalgias Skin: Denies: Rash Neurological: Reports: Weakness. Denies: Parasthesia Hematologic: Denies: Easy bruising Physical Exam Vital Signs/Narrative: Vital Signs Temp Pulse Resp BP Pulse Ox 04/11/19 22:00 98.8 F 101 H 20 H 150/79 H 99 04/11/19 21:24 98.8 F 99 16 159/80 H 100 04/11/19 21:21 98.8 F 04/11/19 20:57 113 H 21 H 133/90 H 95 04/11/19 20:21 98.9 F 116 H 20 H 150/88 H 95 General: Well nourished Eyes: Perrl, EOMI ENT: - - Dry mucous membranes Neck: Supple, Nontender Cardiovascular: Regular rate, Regular rhythm Respiratory: No distress, - - Coarse bilateral breath sounds Abdomen: Soft, Nontender Back: Nontender, Normal Inspection Extremities: No edema Skin: Normal color, No rash Neurological: Alert, Cranial nerves II-XII grossly intact, Normal Strength, Normal Sensation Diagnostic/Tx/Re-eval - Rhythm Strip Rhythm Strip: Sinus Rhythm Rate: 116 Ectopy: None - EKG Initial EKG Interpretation: Sinus Rhythm, - - Sinus tachycardia at 116. Normal NE and QTc intervals. Normal ST segments no ischemic changes interpreted by emergency doctor - Medical Decision Making Patient is found to have a pneumonia on CT. He does not meet sepsis criteria. We will treat him with IV antibiotics and admit him to hospital. Disposition admit in stable condition ED Disposition - Plan for ED Patient: Diagnosis: Pneumonia Referrals: Pedrito Fernandez MD [Primary Care Provider] -
--- NOTE | 2019-04-11 22:57 | HP.PCM_ITS ---
Problem List (1) Sepsis Status: Acute (2) Community acquired pneumonia Status: Acute (3) Bilateral lower extremity edema Status: Chronic History of Present Illness Date of Admission: 04/11/19 Chief Complaint: weakness The patient is a 79 year old M with a significant history of prostate cancer status post radiation and immunotherapy; bilateral leg edema; aortic stenosis; and peptic ulcer disease who presented to emergency department because of a 1 day history of weakness. Per family patient was too weak to walk. Also associated with symptoms is productive cough for which reason he saw his PCP and was started on doxycycline for pneumonia. Family reported that patient has had malaise and fatigue for about 2 weeks. Further patient has had hoarse voice. At the emergency department chest x-ray showed left midlung hazy opacity chest CT showed left upper lobe opacity. Lactic acid was unremarkable. Blood cultures were obtained and patient was started as a transient and azithromycin. Past Medical History Past Medical History (Chronic Problems): Chronic Problems (Last Reviewed 04/12/19 @ 00:41 by Donn De Leon MD) Bilateral lower extremity edema (Chronic) Non-rheumatic aortic stenosis (Chronic) Hyperlipidemia (Chronic) Left carotid artery stenosis (Chronic) moderate (50-69%) stenosis leftextracranial internal carotid Medical History: Medical History (Last Reviewed 04/12/19 @ 00:41 by Donn De Leon MD) Non-rheumatic aortic stenosis (Chronic) I35.0 Hyperlipidemia (Chronic) E78.5 Left carotid artery stenosis (Chronic) I65.22 moderate (50-69%) stenosis leftextracranial internal carotid Carotid bruit R09.89 Esophagitis K20.9 Prostate cancer C61 Closed head injury S09.90XA Fall (Resolved) W19.XXXA GI bleed K92.2 Non-rheumatic tricuspid valve insufficiency (Ruled-out) I36.1 Systolic murmur (Inactive) R01.1 Allergies Penicillins Adverse Reaction (Verified 04/11/19 20:24) Unknown Home Medications: Ambulatory Orders Medication Instructions Recorded multivitamin capsule 1 cap PO QAM 02/03/18 Ascorbic Acid [Vitamin C] 500 mg PO BID #0 10/26/18 furosemide 40 mg tablet 40 mg PO DAILY #90 tab 02/01/19 pantoprazole 40 mg tablet,delayed 40 mg PO DAILY tab 02/01/19 release Doxycycline Hyclate 100 mg PO BID 04/11/19 atorvastatin 10 mg tablet 10 mg PO DAILY #90 tab 04/11/19 Surgical History: Surgical History (Last Reviewed 04/12/19 @ 01:59 by Donn De Leon MD) History of esophagogastroduodenoscopy (EGD) Onset Date: 10/26/18 Z98.890 History of herniorrhaphy Z98.890, Z87.19 Surgical History: herniorrhaphy Psychiatric History: No pertinent psych hx Lives: With Family Smoking Status: Never smoker Alcohol: None - *Family History Maternal Family History: Family History (Last Reviewed 04/12/19 @ 00:41 by Donn De Leon MD) Brother Hypertension Daughter Hypertension Mother Heart disease History Items: No pertinent history Paternal Family History: Family History (Last Reviewed 04/12/19 @ 00:41 by Donn De Leon MD) Brother Hypertension Daughter Hypertension Mother Heart disease History Items: No pertinent history Review of Systems Constitutional: Reports: Malaise, Weakness, Fatigue. Denies: Chills, Fever, Weight Change HEENT: Denies: Head Aches, Sinus Congestion, Sinus Drainage Cardiovascular: Denies: Chest Pain, Palpitations Respiratory: Reports: Cough, Sputum production. Denies: Shortness of breath at rest Gastrointestinal: Denies: Abdominal Pain, Nausea, Vomiting Genitourinary: Denies: Dysuria Musculoskeletal: Denies: Joint Pain, Joint Tenderness Skin: Denies: Rash, Wounds Neurological: Denies: Numbness, Tingling, Focal weakness Psychiatric: Denies: Anxiety, Depression, Homicidal Ideations, Suicidal Ideations Hematologic/ Lymphatic: Denies: Easy Bruising, Easy Bleeding VTE Information - Inpt Only VTE Present on Admission: No VTE Mechan Device Prophylaxis: SCD's VTE Pharm Prophylaxis ordered?: No Patient Problems: Active and Suspected Problems (Last Reviewed 04/12/19 @ 00:41 by Donn De Leon MD) Pneumonia (Acute) Sepsis (Acute) Community acquired pneumonia (Acute) - Physical Exam General: Alert, Oriented x3, Cooperative HEENT: Atraumatic, PERRLA, EOMI, Normocephalic Neck: Supple, No JVD, Negative Carotid Bruits Lungs: Clear to auscultation, Normal air movement, Tachypneic Cardiovascular: Murmur - mild, Tachycardic Abdomen: Bowel Sounds Present, Soft, Non Tender Extremities: No edema, Capillary Refill Less than 3 Seconds Skin: No rashes, No breakdown Musculoskeletal: No Tenderness to Palpation of Joints or Extremities Neurological: Cranial nerves II-XII grossly intact Psych/Mental Status: Normal Affect, Appropriate Vital Signs Temp Pulse Resp BP Pulse Ox 98.8 F 101 H 20 H 150/79 H 99 04/11/19 22:00 04/11/19 22:00 04/11/19 22:00 04/11/19 22:00 04/11/19 22:00 Oxygen Flow Rate (L/min) 2 Oxygen Delivery Method Nasal Cannula Weight: 63.8 kg Body Mass Index (BMI) 21.4 Laboratory Tests Past 24 Hrs 04/11/19 04/11/19 04/11/19 20:25 20:25 20:25 WBC 5.7 RBC 4.18 L Hgb 12.5 L Hct 36.9 L MCV 88.3 MCH 29.9 MCHC 33.9 RDW Std Deviation 46.6 H RDW Coeff of Rock 14.3 Plt Count 220 MPV 9.4 Immature Gran % (Auto) 0.200 Neut % (Auto) 76.8 H Lymph % (Auto) 5.3 L [place] % (Auto) 15.3 H Eos % (Auto) 1.9 Baso % (Auto) 0.5 Absolute Neuts (auto) 4.4 Absolute Lymphs (auto) 0.30 L Nucleated RBC % 0 Differential Comment SCANNED PT 14.2 INR 1.1 APTT 30.6 Sodium 136 Potassium 3.6 Chloride 103 Carbon Dioxide 27.0 Anion Gap 6 BUN 21 H Creatinine 1.04 Estim Creat Clear Calc 52.83 Est GFR (MDRD) Af Amer 89 Est GFR (MDRD) Non-Af 73 BUN/Creatinine Ratio 20.2 H Glucose 123 H Lactic Acid Calcium 8.3 L Total Bilirubin 0.70 AST 21 ALT 28 Alkaline Phosphatase 104 Total Protein 6.9 Albumin 3.3 Globulin 3.6 Albumin/Globulin Ratio 0.9 Urine Color Urine Clarity Urine pH Ur Specific [place]ector Urine Protein Urine Glucose (UA) Urine Ketones Urine Occult Blood Urine Nitrite Urine Bilirubin Urine Urobilinogen Ur Leukocyte Esterase Urine RBC Urine WBC Ur Squamous Epith Cells Urine Bacteria Urine Mucus 04/11/19 04/11/19 20:25 21:30 WBC RBC Hgb Hct MCV MCH MCHC RDW Std Deviation RDW Coeff of Rock Plt Count MPV Immature Gran % (Auto) Neut % (Auto) Lymph % (Auto) [place] % (Auto) Eos % (Auto) Baso % (Auto) Absolute Neuts (auto) Absolute Lymphs (auto) Nucleated RBC % Differential Comment PT INR APTT Sodium Potassium Chloride Carbon Dioxide Anion Gap BUN Creatinine Estim Creat Clear Calc Est GFR (MDRD) Af Amer Est GFR (MDRD) Non-Af BUN/Creatinine Ratio Glucose Lactic Acid 1.0 Calcium Total Bilirubin AST ALT Alkaline Phosphatase Total Protein Albumin Globulin Albumin/Globulin Ratio Urine Color Yellow Urine Clarity Clear Urine pH 6.0 Ur Specific [place]ector 1.015 Urine Protein Negative Urine Glucose (UA) Normal Urine Ketones Negative Urine Occult Blood 25 H Urine Nitrite Negative Urine Bilirubin Negative Urine Urobilinogen Normal Ur Leukocyte Esterase Negative Urine RBC 0-5 SEEN Urine WBC 0 SEEN Ur Squamous Epith Cells 0 SEEN Urine Bacteria 0 SEEN Urine Mucus 0 SEEN Assessment/Plan All Active Problems (Last Reviewed 04/12/19 @ 00:41 by Donn De Leon MD) Pneumonia (Acute) Sepsis (Acute) Community acquired pneumonia (Acute) Fall (Resolved) Non-rheumatic tricuspid valve insufficiency (Ruled-out) The patient is a 79 year old M with a significant history of prostate cancer status post radiation and immunotherapy; bilateral leg edema; aortic stenosis; and peptic ulcer disease who presented to emergency department because of a weakness with inability to walk; productive cough; malaise; tachycardia and tachypnea and with radiographic evidence of pneumonia consistent with sepsis secondary to committee acquired pneumonia . Sepsis secondary to community acquired pneumonia Lactic acid: 1.0 RR: Highest 22 Tachycardia 99-101 Blood culture ?2 is pending Chest x-ray: Interpreted as hazy opacity in the left midlung field. Possible infection versus malignancy. Patient had a chest x-ray at MD's office to which is no change from above. Independent review of CT chest confirmed left upper opacity. Respiratory Gram stain and culture pending Antibiotics: Ceftriaxone and azithromycin was started at the emergency department continue. IV hydration: Received IV fluid bolus at the emergency department. Albuterol as needed Legionella antigen screen and Strep antigen ordered Patulous esophagus Patient had an EGD with Dr. Amor and is supposed to be following up with him. EGD also showed 4 cm hiatal hernia. Consider discussing a patulous esophagus finding with general surgery. Radiology recommended esophagram correlation. History of Bilateral lower extremities edema Lasix continued Peptic ulcer disease Protonix continued GERD Protonix continued DVT prophylaxis SCD ordered Code Visit Inpatient E&M: 49297 Init Hosp L3
[2019-04-11] MEDS: Ceftriaxone 1 GM/50 ML BAG IV (23:14)
[2019-04-11 23:24] VITALS: BP 151/92; PULSE 101; RESP 22; O2SAT 98
[2019-04-12] VITALS (18 sets, daily range): BP systolic 109–155; BP diastolic 65–90; PULSE 89–144; RESP 14–20; TEMP 36.9–37.4; O2SAT 90–98; BMI 19.8; BMI 19.9
[2019-04-12] MEDS: 0.9% NaCl Peripheral Flush Adult/Peds IV ×2 (00:41→18:27)
[2019-04-12 07:07] LABS: Absolute Lymphocyte Count 0.35 X10^3/uL (0.83-4.51); Absolute Neutrophil Count 3.6 X10^3/uL (2.0-7.7); Basophil# 0.04 X10^3/uL; Basophil% 0.8 % (0-1); Eosinophil# 0.15 X10^3/uL; Eosinophils% 2.9 % (0-5); Hematocrit 36.4 % (40-54); Hemoglobin 12.3 g/dL (13.0-16.5); Lymphocyte # 0.35 X10^3/ul (4.0); Lymphocyte % 6.9 % (19-41); Mean Corp Hgb Conc 33.8 g/dL (32-36); Mean Corpuscular Volume 88.8 fL (80-94); Mean Platelet Vol. 9.4 fl (6.2-12.0); Monocyte# 0.93 X10^3/uL; Monocyte% 18.3 % (0-10); NRBC Flagged by Analyzer 0 % (0-5); Neutrophil # 3.61 X10^3/uL (2.7-7.7); Neutrophil % 70.9 % (47-70); POSITIVE DIFFERENTIAL YES; Platelet Count 203 K/mm3 (150-450); RBC Distribution Width CV 14.3 % (11.6-14.6); RBC Distribution Width SD 46.5 fl (35.1-43.9); White Blood Count 5.1 K/mm3 (4.4-11.0)
[2019-04-12 07:09] LABS: Differential Indicated SCAN CRITERIA MET
[2019-04-12 07:29] LABS: Anion Gap 6 (5-15); BUN 14 mg/dL (7-18); BUN/Creat Ratio 17.8 RATIO (10-20); Chloride 103 mmol/L (98-107); Creatinine, Serum 0.79 mg/dL (0.70-1.30); EST Glomerular Filtration Rate 101 mL/min (>60); Est Glom Filt Rate - Afr Amer 123 mL/min (>60); Estimated Creatinine Clearance 51.06 ml/min; Glucose 91 mg/dL (74-106); Potassium 3.5 mmol/L (3.5-5.1); Sodium Level 137 mmol/L (136-145)
[2019-04-12] MEDS: Furosemide 40 MG Tablet PO (09:21)
[2019-04-12] MEDS: Ascorbic Acid 500 MG Tablet PO ×2 (09:21→22:08)
[2019-04-12] MEDS: Pantoprazole Sodium 40 MG Tablet PO (09:21)
[2019-04-12] MEDS: Multivitamins,Therapeutic Tablet 1 TABLET PO (09:22)
[2019-04-12] MEDS: guaiFENesin 1,200 MG Tablet 1200 MG PO ×2 (09:22→21:14)
--- NOTE | 2019-04-12 12:27 | PN_ITS ---
<Colleen Phillips - Last Filed: 04/12/19 13:02> Patient Problems: Active and Suspected Problems (Last Reviewed 04/12/19 @ 00:41 by Donn De Leon MD) Pneumonia (Acute) Sepsis (Acute) Community acquired pneumonia (Acute) Subjective: Patient seen and examined. Denies shortness of breath. Weaned off of supplemental oxygen. Continues to have generalized weakness. - Physical Exam General: Alert, Oriented x3, Cooperative HEENT: Atraumatic, PERRLA, EOMI, Normocephalic Neck: Supple, No JVD, Negative Carotid Bruits Lungs: Diminished, Rhonchi Cardiovascular: Regular rate, Regular Rhythm, Normal S1, Normal S2, Murmur Abdomen: Bowel Sounds Present, Soft, Non Tender, Non-Distended Extremities: No clubbing, No cyanosis, No edema, Capillary Refill Less than 3 Seconds Skin: No rashes, No breakdown Musculoskeletal: No Tenderness to Palpation of Joints or Extremities Neurological: Cranial nerves II-XII grossly intact, Neuro grossly intact Psych/Mental Status: Normal Affect, Appropriate Vital Signs Temp Pulse Resp BP Pulse Ox 98.5 F 100 18 111/65 95 04/12/19 10:00 04/12/19 10:00 04/12/19 10:00 04/12/19 10:00 04/12/19 10:00 Oxygen Flow Rate (L/min) 1 Oxygen Delivery Method Room Air Weight: 130 lb 11.746 oz Body Mass Index (BMI) 19.8 Intake and Output for Last 24 Hours 04/10/19 04/11/19 04/12/19 23:59 23:59 23:59 Intake Total 360 / 360 Output Total 350 / 350 Balance Microbiology Past 72 Hours 04/11/19 21:30 Streptococcus pneumoniae Antigen (M - Final Urine Catheter - Catheter 04/11/19 21:30 Legionella Antigen - Final Urine Catheter - Catheter Laboratory Tests Past 24 Hrs 04/11/19 04/11/19 04/11/19 20:25 20:25 20:25 WBC 5.7 RBC 4.18 L Hgb 12.5 L Hct 36.9 L MCV 88.3 MCH 29.9 MCHC 33.9 RDW Std Deviation 46.6 H RDW Coeff of Rock 14.3 Plt Count 220 MPV 9.4 Immature Gran % (Auto) 0.200 Neut % (Auto) 76.8 H Lymph % (Auto) 5.3 L [place] % (Auto) 15.3 H Eos % (Auto) 1.9 Baso % (Auto) 0.5 Absolute Neuts (auto) 4.4 Absolute Lymphs (auto) 0.30 L Nucleated RBC % 0 Differential Comment SCANNED PT 14.2 INR 1.1 APTT 30.6 Sodium 136 Potassium 3.6 Chloride 103 Carbon Dioxide 27.0 Anion Gap 6 BUN 21 H Creatinine 1.04 Estim Creat Clear Calc 52.83 Est GFR (MDRD) Af Amer 89 Est GFR (MDRD) Non-Af 73 BUN/Creatinine Ratio 20.2 H Glucose 123 H Lactic Acid Calcium 8.3 L Total Bilirubin 0.70 AST 21 ALT 28 Alkaline Phosphatase 104 Total Protein 6.9 Albumin 3.3 Globulin 3.6 Albumin/Globulin Ratio 0.9 Urine Color Urine Clarity Urine pH Ur Specific Mc[place]an Urine Protein Urine Glucose (UA) Urine Ketones Urine Occult Blood Urine Nitrite Urine Bilirubin Urine Urobilinogen Ur Leukocyte Esterase Urine RBC Urine WBC Ur Squamous Epith Cells Urine Bacteria Urine Mucus 04/11/19 04/11/19 04/12/19 20:25 21:30 06:20 WBC 5.1 RBC 4.10 L Hgb 12.3 L Hct 36.4 L MCV 88.8 MCH 30.0 MCHC 33.8 RDW Std Deviation 46.5 H RDW Coeff of Rock 14.3 Plt Count 203 MPV 9.4 Immature Gran % (Auto) 0.200 Neut % (Auto) 70.9 H Lymph % (Auto) 6.9 L [place] % (Auto) 18.3 H Eos % (Auto) 2.9 Baso % (Auto) 0.8 Absolute Neuts (auto) 3.6 Absolute Lymphs (auto) 0.35 L Nucleated RBC % 0 Differential Comment PT INR APTT Sodium Potassium Chloride Carbon Dioxide Anion Gap BUN Creatinine Estim Creat Clear Calc Est GFR (MDRD) Af Amer Est GFR (MDRD) Non-Af BUN/Creatinine Ratio Glucose Lactic Acid 1.0 Calcium Total Bilirubin AST ALT Alkaline Phosphatase Total Protein Albumin Globulin Albumin/Globulin Ratio Urine Color Yellow Urine Clarity Clear Urine pH 6.0 Ur Specific Mcfarl[place] 1.015 Urine Protein Negative Urine Glucose (UA) Normal Urine Ketones Negative Urine Occult Blood 25 H Urine Nitrite Negative Urine Bilirubin Negative Urine Urobilinogen Normal Ur Leukocyte Esterase Negative Urine RBC 0-5 SEEN Urine WBC 0 SEEN Ur Squamous Epith Cells 0 SEEN Urine Bacteria 0 SEEN Urine Mucus 0 SEEN 04/12/19 06:20 WBC RBC Hgb Hct MCV MCH MCHC RDW Std Deviation RDW Coeff of Rock Plt Count MPV Immature Gran % (Auto) Neut % (Auto) Lymph % (Auto) [place] % (Auto) Eos % (Auto) Baso % (Auto) Absolute Neuts (auto) Absolute Lymphs (auto) Nucleated RBC % Differential Comment PT INR APTT Sodium 137 Potassium 3.5 Chloride 103 Carbon Dioxide 28.0 Anion Gap 6 BUN 14 Creatinine 0.79 Estim Creat Clear Calc 51.06 Est GFR (MDRD) Af Amer 123 Est GFR (MDRD) Non-Af 101 BUN/Creatinine Ratio 17.8 Glucose 91 Lactic Acid Calcium 8.0 L Total Bilirubin AST ALT Alkaline Phosphatase Total Protein Albumin Globulin Albumin/Globulin Ratio Urine Color Urine Clarity Urine pH Ur Specific [place] Urine Protein Urine Glucose (UA) Urine Ketones Urine Occult Blood Urine Nitrite Urine Bilirubin Urine Urobilinogen Ur Leukocyte Esterase Urine RBC Urine WBC Ur Squamous Epith Cells Urine Bacteria Urine Mucus Medical Necessity - Tobacco Use Smoking Status: Never smoker Assessment/Plan All Active Problems (Last Reviewed 04/12/19 @ 00:41 by Donn De Leon MD) Pneumonia (Acute) Sepsis (Acute) Community acquired pneumonia (Acute) Fall (Resolved) Non-rheumatic tricuspid valve insufficiency (Ruled-out) 1. Acute sepsis secondary to acute community acquired pneumonia-CT of chest on admission shows left upper obesity. Continue IV Rocephin and IV azithromycin. Urine for strep and Legionella negative. Blood cultures pending. Albuterol and DuoNeb aerosol. Not noted to be hypoxic. Weaned off of supplemental oxygen. Anticipate discharge home tomorrow if continued improvement. PT/OT for home- going recommendations. 2. Peptic ulcer disease/GERD-continue PPI. CT of chest demonstrated patulous esophagus, hiatal hernia. Continue outpatient follow-up with general surgery. Outpatient follow-up with Dr. Amor who performed endoscopy October 2018 due to GI bleed. 3. Hyperlipidemia-continue statin. 4. Carotid artery disease-continue statin regimen. 5. Dependent edema-continue Lasix regimen. 6. Nonrheumatic aortic stenosis-follows with Dr. Oreilly. 7. History of prostate cancer DVT prophylaxis-SCDs. This patient was seen by TERESITA Raines under the supervision of Dr. Riley. <Yaakov Riley F - Last Filed: 04/12/19 16:12> - Physical Exam Vital Signs Temp Pulse Resp BP Pulse Ox 98.5 F 112 H 18 111/65 90 04/12/19 10:00 04/12/19 14:57 04/12/19 10:00 04/12/19 10:00 04/12/19 14:27 Oxygen Flow Rate (L/min) 1 Oxygen Delivery Method Room Air Weight: 130 lb 11.746 oz Body Mass Index (BMI) 19.8 Intake and Output for Last 24 Hours 04/10/19 04/11/19 04/12/19 23:59 23:59 23:59 Intake Total 360 / 360 Output Total 350 / 350 Balance Microbiology Past 72 Hours 04/11/19 21:30 Streptococcus pneumoniae Antigen (M - Final Urine Catheter - Catheter 04/11/19 21:30 Legionella Antigen - Final Urine Catheter - Catheter Laboratory Tests Past 24 Hrs 04/11/19 04/11/19 04/11/19 20:25 20:25 20:25 WBC 5.7 RBC 4.18 L Hgb 12.5 L Hct 36.9 L MCV 88.3 MCH 29.9 MCHC 33.9 RDW Std Deviation 46.6 H RDW Coeff of Rock 14.3 Plt Count 220 MPV 9.4 Immature Gran % (Auto) 0.200 Neut % (Auto) 76.8 H Lymph % (Auto) 5.3 L [place] % (Auto) 15.3 H Eos % (Auto) 1.9 Baso % (Auto) 0.5 Absolute Neuts (auto) 4.4 Absolute Lymphs (auto) 0.30 L Nucleated RBC % 0 Differential Comment SCANNED PT 14.2 INR 1.1 APTT 30.6 Sodium 136 Potassium 3.6 Chloride 103 Carbon Dioxide 27.0 Anion Gap 6 BUN 21 H Creatinine 1.04 Estim Creat Clear Calc 52.83 Est GFR (MDRD) Af Amer 89 Est GFR (MDRD) Non-Af 73 BUN/Creatinine Ratio 20.2 H Glucose 123 H Lactic Acid Calcium 8.3 L Total Bilirubin 0.70 AST 21 ALT 28 Alkaline Phosphatase 104 Total Protein 6.9 Albumin 3.3 Globulin 3.6 Albumin/Globulin Ratio 0.9 Urine Color Urine Clarity Urine pH Ur Specific [place] Urine Protein Urine Glucose (UA) Urine Ketones Urine Occult Blood Urine Nitrite Urine Bilirubin Urine Urobilinogen Ur Leukocyte Esterase Urine RBC Urine WBC Ur Squamous Epith Cells Urine Bacteria Urine Mucus 04/11/19 04/11/19 04/12/19 20:25 21:30 06:20 WBC 5.1 RBC 4.10 L Hgb 12.3 L Hct 36.4 L MCV 88.8 MCH 30.0 MCHC 33.8 RDW Std Deviation 46.5 H RDW Coeff of Rock 14.3 Plt Count 203 MPV 9.4 Immature Gran % (Auto) 0.200 Neut % (Auto) 70.9 H Lymph % (Auto) 6.9 L [place] % (Auto) 18.3 H Eos % (Auto) 2.9 Baso % (Auto) 0.8 Absolute Neuts (auto) 3.6 Absolute Lymphs (auto) 0.35 L Nucleated RBC % 0 Differential Comment PT INR APTT Sodium Potassium Chloride Carbon Dioxide Anion Gap BUN Creatinine Estim Creat Clear Calc Est GFR (MDRD) Af Amer Est GFR (MDRD) Non-Af BUN/Creatinine Ratio Glucose Lactic Acid 1.0 Calcium Total Bilirubin AST ALT Alkaline Phosphatase Total Protein Albumin Globulin Albumin/Globulin Ratio Urine Color Yellow Urine Clarity Clear Urine pH 6.0 Ur Specific [place] 1.015 Urine Protein Negative Urine Glucose (UA) Normal Urine Ketones Negative Urine Occult Blood 25 H Urine Nitrite Negative Urine Bilirubin Negative Urine Urobilinogen Normal Ur Leukocyte Esterase Negative Urine RBC 0-5 SEEN Urine WBC 0 SEEN Ur Squamous Epith Cells 0 SEEN Urine Bacteria 0 SEEN Urine Mucus 0 SEEN 04/12/19 06:20 WBC RBC Hgb Hct MCV MCH MCHC RDW Std Deviation RDW Coeff of Rock Plt Count MPV Immature Gran % (Auto) Neut % (Auto) Lymph % (Auto) [place] % (Auto) Eos % (Auto) Baso % (Auto) Absolute Neuts (auto) Absolute Lymphs (auto) Nucleated RBC % Differential Comment PT INR APTT Sodium 137 Potassium 3.5 Chloride 103 Carbon Dioxide 28.0 Anion Gap 6 BUN 14 Creatinine 0.79 Estim Creat Clear Calc 51.06 Est GFR (MDRD) Af Amer 123 Est GFR (MDRD) Non-Af 101 BUN/Creatinine Ratio 17.8 Glucose 91 Lactic Acid Calcium 8.0 L Total Bilirubin AST ALT Alkaline Phosphatase Total Protein Albumin Globulin Albumin/Globulin Ratio Urine Color Urine Clarity Urine pH Ur Specific [place] Urine Protein Urine Glucose (UA) Urine Ketones Urine Occult Blood Urine Nitrite Urine Bilirubin Urine Urobilinogen Ur Leukocyte Esterase Urine RBC Urine WBC Ur Squamous Epith Cells Urine Bacteria Urine Mucus Code Visit Addendum: Dr. Riley I personally examined the patient and reviewed the chart. I agree with the above. 79-year-old male who lives with his son presents to the hospital with 1 day history of weakness. He has had a productive cough which she saw his primary care for was started on doxycycline as an outpatient. In the ER he was found to have a left upper lobe pneumonia on CT of the chest and was started on Rocephin and azithromycin for community-acquired pneumonia. I discussed the case with the patient about potentially going to a detention facility after discharge for rehab which she has declined. He does not have a leukocytosis or fever therefore we will continue to monitor and possibly discharge tomorrow depending on his oxygenation status. Inpatient E&M: [id number] Subs Hosp L2
--- NOTE | 2019-04-12 12:42 | CHAPLAIN ---
Type of Pastoral Visit _x__ Initial Visit ___ Follow-up Visit ___ On-call Visit ___ General Patient Visit ___ Spiritual Assessment ___ Family Conference ___ Bereavement ___ Rapid Response ___ Code Blue ___ Other (describe below) Pastoral Care Referral From _x__ Patient _x__ Family ___ Nurse ___ Physician ___ Auditor ___ Table Games Dual Rate Supervisor ___ Other (describe below) Sacrament/Intervention _x__ Active listening ___ Anointing ___ Moravian ___ Bereavement ___ Communion ___ Meli exploration ___ ___ Life review _x__ Prayer ___ Reconciliation ___ Sacrament of Sick _x__ Supportive presence ___ Wedding ___ Other (describe below) Pastoral Comments
--- NOTE | 2019-04-12 13:46 | CASEMGMT ---
RN VENKATESH assessment: Face to Face with patient for initial transition planning/care coordination assessment. RN CM introduced self and role at [facility], pt voices understanding and consents to assessment at this time. Pt is sitting up in bed in no distress at this time. Pt is A/Ox4 at this time and answers all questions appropriately at this time. Care providers, pharmacy, and demographics verified at this time. PCP: Jim Specialists: Denilson cardio John Pharmacy: [facility] Insurance: [employer] Prescription Benefit: [employer] Living Will/HPOA: Pt states has LW/HPOA and they are on file at [facility] at this time. Pt states that his daughter, Elsy Osborn, is HPOA. LNOK: Elsy Osborn, HPOA/daughter; Lyric Barbosa, daughter; Jigar Robleroler II, son Living Arrangements: Pt states lives with son on main level of home and states no concerns at home at this time. Pt states that his daughter, Elsy, lives up the road and his brother/[id number]-ee-iey live next door. Pt states that he has assistance with most ADL's and states that there is almost always someone with him. Transportation: Pt states he has [address] and states no transportation concerns at this time. DME/HHC: Pt states has the following DME: w/c, rollater, walker, hand held shower, grab bars, and tub bench. Pt states no need for any further DME at this time. Pt states no hx of HHC or SNF in the past. Pt states that he did learn some exercises from a therapist in the past and he normally does this daily but states has not in the past. 1-2weeks d/t not feeling well. Pt declines HHC at this time d/t same. Pt states no concerns with going home at time of discharge. Pt is retired. Pt states does not smoke or drink ETOH. Pt states no further concerns/needs at this time. CM to follow PT eval and for any further discharge planning/needs. Advised pt to ask for CM if any further questions/concerns/needs arise, voices understanding. This RN CM asked if daughter, Elsy, could be contacted about discharge plan at this time and pt did not want his daughter contacted at this time. CM to follow. Pt Goal: Home Plan: Home, pending PT eval. SStaten RN CM
--- NOTE | 2019-04-12 17:55 | EKG12_ITS ---
Test Reason : Blood Pressure : / mmHG Vent. Rate : 155 BPM Atrial Rate : 359 BPM P-R Int : 000 ms QRS Dur : 080 ms QT Int : 304 ms P-R-T Axes : 000 -02 -32 degrees QTc Int : 488 ms Atrial flutter with variable A-V block Minimal voltage criteria for LVH, may be normal variant T wave abnormality, consider inferior ischemia Abnormal ECG When compared with ECG of 11-APR-2019 21:03, MANUAL COMPARISON REQUIRED, DATA IS UNCONFIRMED Confirmed by ANTONINO MOREJON ([id number]), multimedia editor GASPER ODONNELL ([id number]) on 04/19/2019 8:18:26 AM Referred By: Pedrito Fernandez Confirmed By:ANTONINO MOREJON
[2019-04-12] MEDS: Metoprolol Tartrate 5 MG/5 ML Vial IV (18:27)
[2019-04-12] MEDS: Atorvastatin Calcium 10 MG Tablet PO (21:14)
[2019-04-12] MEDS: Ceftriaxone 1 GM/50 ML BAG IV (21:15)
[2019-04-12] MEDS: 0.9% NaCl IVPB Med Flush (250 mL) 15 ML IV (21:21)
[2019-04-13 03:03] VITALS: PULSE 89
[2019-04-13 03:10] VITALS: BP 140/77; PULSE 90; RESP 16; TEMP 37.1; O2SAT 93
--- NOTE | 2019-04-13 06:00 | ECHOD_ITS ---
Reason For Study: Afib/Flutter Procedure This was a 2D Doppler, Color Flow transthoracic echocardiogram. Exam performed portable in patient room. Left Ventricle Mild concentric left ventricular hypertrophy. The estimated ejection fraction is 65 %. Stage 1 diastolic dysfunction. No regional wall motion abnormalities noted. Right Ventricle Normal size and thickness. Normal systolic function. Atria Normal left atrium. Normal right atrium. Normal atrial septum. Mitral Valve Mild diffuse mitral valve thickening. Moderate focal mitral valve thickening. No significant mitral valve stenosis. Tricuspid Valve Normal tricuspid valve. Mild (1+) tricuspid valve insufficiency. Right ventricular systolic pressure estimated to be 27 mmHg. Aortic Valve Trisinus/trileaflet aortic valve. 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 Moderate focal aortic valve thickening. Moderate focal aortic valve calcification. Moderate restriction of the aortic valve. Moderate aortic stenosis. Peak aortic valve gradient 41 mmHg. Mean aortic valve gradient 23 mmHg. Calculated aortic valve area (continuity equation) is 0.95 cm2. Pulmonic Valve Normal pulmonic valve. Mild (1+) pulmonic valve insufficiency. Great Vessels Calcified aortic root. Mild atherosclerosis of the aortic arch. Normal inferior vena cava. Inferior vena cava collapse with respiration. Pericardium/Pleural No pericardial effusion. MMode/2D Measurements & Calculations LVIDd: 3.1 cm IVSd: 1.4 cm LVOT diam: 2.0 cm LVIDs: 1.6 cm LVPWd: 1.2 cm LVOT area: 3.2 cm2 FS: 46.9 % LA dimension: 3.4 cm LAV(MOD-bp): 42.8 ml LA A4 area: 17.4 cm2 LAV(MOD-bp) Indexed: 25.1 ml/m2 LAV(MOD-sp2): 35.2 ml LAV(MOD-sp4): 47.4 ml RA A4 area: 12.0 cm2 Time Measurements MV dec time: 0.20 sec Doppler Measurements & Calculations MV E max [place]: 72.5 cm/sec Lat Peak E' [place]: 3.5 cm/sec Med Peak E' [place]: 4.3 cm/sec MV A max [place]: 131.6 cm/sec E/E' lat: 20.4 E/E' med: 16.8 MV E/A: 0.55 MV V2 max: 152.2 cm/sec MV P1/2t max [place]: 79.9 cm/sec Ao V2 max: 320.7 cm/sec MV max P.3 mmHg MV P1/2t: 85.5 msec Ao max P.1 mmHg MV V2 mean: 72.4 cm/sec MV dec slope: 273.9 cm/sec2 Ao V2 mean: 228.2 cm/sec MV mean P.6 mmHg Ao mean P.3 mmHg MV V2 VTI: 25.9 cm MVA(P1/2t): 2.6 cm2 Ao V2 VTI: 58.6 cm MVA(VTI): 2.2 cm2 JAMIN(I,D): 0.98 cm2 JAMIN(V,D): 0.95 cm2 AI max d[place]: 286.0 cm/sec LV V1 max: 96.0 cm/sec SV(LVOT): 57.3 ml AI max P.7 mmHg LV V1 max P.7 mmHg LV V1 mean P.8 mmHg AI dec slope: 217.6 cm/sec2 LV V1 mean: 62.4 cm/sec AI P1/2t: 385.0 msec LV V1 VTI: 18.0 cm PA V2 max: 99.2 cm/sec TR max dak[place]: 236.9 cm/sec TR max P.4 mmHg Interpretation Summary Mild concentric left ventricular hypertrophy. The estimated ejection fraction is 65 %. Stage 1 diastolic dysfunction. No significant mitral valve stenosis. Mild (1+) tricuspid valve insufficiency. Right ventricular systolic pressure estimated to be 27 mmHg. 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 Moderate aortic stenosis. Compared to echo report dated 12/20/2018, no appreciable changes noted. Ordering Physician: Yaakov Riley Referring Physician: Pedrito Fernandez Performed By: Mario Wilson RCS
[2019-04-13 06:41] LABS: Anion Gap 9 (5-15); BUN 15 mg/dL (7-18); Calcium,Total 7.9 mg/dL (8.5-10.1); Chloride 103 mmol/L (98-107); Creatinine, Serum 0.75 mg/dL (0.70-1.30); EST Glomerular Filtration Rate 107 mL/min (>60); Est Glom Filt Rate - Afr Amer 130 mL/min (>60); Estimated Creatinine Clearance 51.06 ml/min; Glucose 97 mg/dL (74-106); Magnesium 2.1 mg/dL (1.6-2.6); Potassium 3.9 mmol/L (3.5-5.1); Sodium Level 137 mmol/L (136-145); Thyroid Stim Hormone (TSH) 1.16 uIU/mL (0.358-3.74)
[2019-04-13 07:33] VITALS: PULSE 82
[2019-04-13 07:48] VITALS: BP 138/73; PULSE 89; RESP 16; TEMP 36.9; O2SAT 93; O2SAT 95
[2019-04-13] MEDS: Multivitamins,Therapeutic Tablet 1 TABLET PO (08:01)
--- NOTE | 2019-04-13 09:35 | CASEMGMT ---
Addendum entered by Isaiah Sosa 04/13/19 12:36: Call placed to pt's daughter, Elsy. She was made aware pt is discharging today. She was also made aware [facility] is able to accept pt for HHC but they will not be able to start care until the beginning of next weeek. She states she is agreeable to this. She states she will be in to pick pt up around 4 PM today when she gets off of work. EDDI Roger made aware. Addendum entered by Isaiah Sosa 04/13/19 12:11: Spoke w/Tenisha @ [facility] and she states they are able to accept pt. PT/OT will not be able to see pt till the beginning of next week. EDDI RIDDLE spoke w/therapy after pt was evaluated today and they state they feel that start of care next week is appropriate for pt. Colleen BENÍTEZ also made aware and she is agreeable as well. Original Note: EDDI RIDDLE NOTE: Reviewed PT/OT notes. Further therapy recommended. To room to talk with patient. Pt states he wants to go home and is agreeable to therapy. Discussed HHC vs Out-pt therapy. Pt states he is unsure and is agreeable to EDDI RIDDLE calling his daughter, Elsy, to discuss discharge planning with her. Call placed to Elsy/zoey/EBONY @ [phone]. She was made aware of therapy's recommendations. She states pt has been homebound lately and has only been able to go to doctor's appt and jain on occasion d/t he has been more weak and it has been difficult for him to get out. Elsy agreeable to HHC and prefers [facility]. Elsy also states if pt requires O2 @ discharge, she prefers [employer], as long as they are in network. Call placed to Angie @ [facility] and message left with referral. Awaiting call back. Kofi RIDDLE RN, CM
[2019-04-13] MEDS: Furosemide 40 MG Tablet PO (10:48)
[2019-04-13] MEDS: Pantoprazole Sodium 40 MG Tablet PO (10:48)
[2019-04-13] MEDS: Ascorbic Acid 500 MG Tablet PO (10:48)
[2019-04-13] MEDS: guaiFENesin 1,200 MG Tablet 1200 MG PO (10:48)
--- NOTE | 2019-04-13 11:48 | PCM.DC ---
- Discharge Diagnoses Current Active Problems: Current Active and Chronic Problems (Last Reviewed 04/12/19 @ 00:41 by Donn De Leon MD) Pneumonia (Acute) Sepsis (Acute) Community acquired pneumonia (Acute) You will use the following diet at home:: Cardiac Discharge Activity: Return to Normal Activity Call your doctor if you observe: Shortness of breath, Dizziness, Fainting spells, Chest pain Allergies/Adverse Reactions: Allergies Penicillins Adverse Reaction (Verified 04/11/19 20:24) Unknown Medications to take at Discharge multivitamin capsule 1 cap PO QAM 02/03/18 Ascorbic Acid [Vitamin C] 500 mg PO BID #0 10/26/18 furosemide 40 mg tablet 40 mg PO DAILY #90 tab 02/01/19 pantoprazole 40 mg tablet,delayed release 40 mg PO DAILY tab 02/01/19 atorvastatin 10 mg tablet 10 mg PO DAILY #90 tab 04/11/19 Albuterol Inhaler [Ventolin Hfa] 1 - 2 puff INHALATION Q4H PRN PRN #1 inhaler 04/13/19 Azithromycin [Zithromax] 500 mg PO DAILY #2 tab 04/13/19 Cefdinir 300 mg PO BID #10 cap 04/13/19 The following prescriptions were given: Cefdinir 300 mg PO BID #10 cap Transmission Status: Pending to [facility] Albuterol Inhaler [Ventolin Hfa] 1 - 2 puff INHALATION Q4H PRN PRN #1 inhaler PRN Reason: Shortness Of Breath Transmission Status: Received by [id number] Azithromycin [Zithromax] 500 mg PO DAILY #2 tab Transmission Status: Pending to [facility] Primary Care Physician: Pedrito Fernandez MD [Primary Care Provider] - Please follow up with your Primary Care Physician in: 1 Week Test Results: Test results from this visit will be discussed in further detail at your follow-up appointment, if applicable. Please Follow Up With: Seth Johnson NP-C When: As scheduled, 06/06/2019 Proposed Discharge Date: 04/13/19
--- NOTE | 2019-04-13 12:34 | PCM.DC.SUM ---
<Colleen Phillpis - Last Filed: 04/13/19 12:44> Discharge Date and Diagnosis Date of Admission: 04/11/19 Date of Discharge: 04/13/19 - Primary Discharge Diagnosis Active and Suspected Problems (Last Reviewed 04/12/19 @ 00:41 by Donn De Leon MD) 1. Acute sepsis secondary to acute community acquired pneumonia 2. New onset atrial fibrillation with RVR 3. Peptic ulcer disease/GERD 4. Hyperlipidemia 5. Carotid artery disease 6. Dependent edema 7. Nonrheumatic aortic stenosis 8. History of prostate cancer - Secondary Discharge Diagnosis Chronic Problems (Last Reviewed 04/12/19 @ 00:41 by Donn De Leon MD) Bilateral lower extremity edema (Chronic) Non-rheumatic aortic stenosis (Chronic) Hyperlipidemia (Chronic) Left carotid artery stenosis (Chronic) moderate (50-69%) stenosis leftextracranial internal carotid Hospital Course and Treatment Imaging Results: Diagnostic Data Chest X-Ray 04/11/19 20:51 IMPRESSION: No significant change in left midlung hazy opacity from this morning. Infection versus malignancy. Again, CT chest is recommended to further evaluate Electronically Signed: Jad Juárez DO at 21:29 EDT Tel , Service support , Chest CT 04/11/19 22:00 IMPRESSION: Left upper lobe pneumonia. Patulous esophagus. Consider esophagram correlation. Hiatal hernia. Cholelithiasis. Electronically Signed: Paul Johnson MD at 22:31 EDT Tel , Service support , Operations: None Procedures: 2-D Echocardiogram Summary of Care Provided: The patient is a 79 year old M admitted 04/11/2019 due to weakness. 1. Acute sepsis secondary to acute community acquired pneumonia-CT of chest on admission shows left upper obesity. Patient received IV Rocephin and IV azithromycin during admission. Urine for strep and Legionella negative. Blood cultures show no growth so far. Albuterol inhaler as needed at discharge. Continue oral azithromycin and Omnicef to complete course of antibiotic at discharge. Patient declined SNF at discharge, will go home with home health. Walking pulse ox completed and patient did not require supplemental oxygen at discharge. Not noted to be hypoxic during admission. Follow-up with primary care physician in 1 week. 2. Peptic ulcer disease/GERD-continue PPI. CT of chest demonstrated patulous esophagus, hiatal hernia. Continue outpatient follow-up with general surgery. Outpatient follow-up with Dr. Amor who performed endoscopy October 2018 due to GI bleed. 3. Hyperlipidemia-continue statin. 4. Carotid artery disease-continue statin regimen. 5. Dependent edema-continue Lasix regimen. 6. Nonrheumatic aortic stenosis-follows with Dr. Oreilly. 7. History of prostate cancer 8. New onset atrial fibrillation with RVR-patient received IV metoprolol x1. Now sinus rhythm. TSH, mag within normal limits. Echocardiogram completed, report pending. Patient is not a candidate for anticoagulation given significant fall risk. He will follow-up with cardiology as scheduled. General: Alert, Oriented x3, Cooperative HEENT: Atraumatic, PERRLA, EOMI, Normocephalic Neck: Supple, No JVD, Negative Carotid Bruits Lungs: Diminished, Rhonchi Cardiovascular: Regular rate, Regular Rhythm, Normal S1, Normal S2, Murmur Abdomen: Bowel Sounds Present, Soft, Non Tender, Non-Distended Extremities: No clubbing, No cyanosis, No edema, Capillary Refill Less than 3 Seconds Skin: No rashes, No breakdown Musculoskeletal: No Tenderness to Palpation of Joints or Extremities Neurological: Cranial nerves II-XII grossly intact, Neuro grossly intact Psych/Mental Status: Normal Affect, Appropriate Patient seen and examined prior to discharge. Physical assessment as noted above. Patient is stable for discharge with follow up recommendations as noted above. This patient was seen by TERESITA Raines under the supervision of Dr. Riley. - Physical Exam Vital Signs Temp Pulse Resp BP Pulse Ox 98.5 F 89 16 138/73 H 95 04/13/19 07:48 04/13/19 07:48 04/13/19 07:48 04/13/19 07:48 04/13/19 07:48 Oxygen Flow Rate (L/min) 1 Oxygen Delivery Method Room Air Weight: 130 lb 11.746 oz Body Mass Index (BMI) 19.8 Intake and Output for Last 24 Hours 04/11/19 04/12/19 04/13/19 23:59 23:59 23:59 Intake Total 1190.50 / 1190.50 3 / 3 Output Total 450 / 450 225 / 225 Balance 740.50 / 740.50 -222 / -222 Microbiology Past 72 Hours 04/11/19 21:30 Urine Culture - Preliminary Urine Catheter - Catheter Culture exhibits no growth. 04/11/19 21:30 Streptococcus pneumoniae Antigen (M - Final Urine Catheter - Catheter 04/11/19 21:30 Legionella Antigen - Final Urine Catheter - Catheter Laboratory Tests Past 24 Hrs 04/13/19 05:20 Sodium 137 Potassium 3.9 Chloride 103 Carbon Dioxide 25.0 Anion Gap 9 BUN 15 Creatinine 0.75 Estim Creat Clear Calc 51.06 Est GFR (MDRD) Af Amer 130 Est GFR (MDRD) Non-Af 107 BUN/Creatinine Ratio 20.0 Glucose 97 Calcium 7.9 L Phosphorus 3.0 Magnesium 2.1 TSH 1.16 Discharge Diet: Low fat/ Low Cholesterol Discharge Activity: Return to Normal Activity Call your doctor if you observe: Shortness of breath, Dizziness, Fainting spells, Chest pain Home Medications: Medications to take at Discharge multivitamin capsule 1 cap PO QAM 02/03/18 Ascorbic Acid [Vitamin C] 500 mg PO BID #0 10/26/18 furosemide 40 mg tablet 40 mg PO DAILY #90 tab 02/01/19 pantoprazole 40 mg tablet,delayed release 40 mg PO DAILY tab 02/01/19 atorvastatin 10 mg tablet 10 mg PO DAILY #90 tab 04/11/19 Albuterol Inhaler [Ventolin Hfa] 1 - 2 puff INHALATION Q4H PRN PRN #1 inhaler 04/13/19 Azithromycin [Zithromax] 500 mg PO DAILY #2 tab 04/13/19 Cefdinir 300 mg PO BID #10 cap 04/13/19 Following Prescrptions Were Given to Patient: Cefdinir 300 mg PO BID #10 cap Transmission Status: Received by [facility] Albuterol Inhaler [Ventolin Hfa] 1 - 2 puff INHALATION Q4H PRN PRN #1 inhaler PRN Reason: Shortness Of Breath Transmission Status: Received by [facility] Azithromycin [Zithromax] 500 mg PO DAILY #2 tab Transmission Status: Received by [facility] Primary Care Physician: Pedrito Fernandez MD [Primary Care Provider] - Please follow up with your Primary Care Physician in: 1 Week Please Follow Up With: Seth Johnson MEDICAL PARASITOLOGIST-C When: As scheduled, 06/06/2019 Disposition: Home with Home Health Minutes spent on discharge:: 35 Patient Condition:: Stable Medical Necessity - Tobacco Use Smoking Status: Never smoker Meaningful Use Info Meaningful Use Diagnoses (Choose all that apply): None applicable <Yaakov Riley - Last Filed: 04/13/19 13:37> Discharge Date and Diagnosis - Secondary Discharge Diagnosis Chronic Problems (Last Reviewed 04/12/19 @ 00:41 by Donn De Leon MD) Bilateral lower extremity edema (Chronic) Non-rheumatic aortic stenosis (Chronic) Hyperlipidemia (Chronic) Left carotid artery stenosis (Chronic) moderate (50-69%) stenosis leftextracranial internal carotid Hospital Course and Treatment Imaging Results: 04/13/19 06:00 Echo Complete [ECHO] Routine Summary of Care Provided: The patient is a 79 year old M [] - Physical Exam Vital Signs Temp Pulse Resp BP Pulse Ox 98.5 F 89 16 138/73 H 95 04/13/19 07:48 04/13/19 07:48 04/13/19 07:48 04/13/19 07:48 04/13/19 07:48 Oxygen Flow Rate (L/min) 1 Oxygen Delivery Method Room Air Weight: 130 lb 11.746 oz Body Mass Index (BMI) 19.8 Intake and Output for Last 24 Hours 04/11/19 04/12/19 04/13/19 23:59 23:59 23:59 Intake Total 1190.50 / 1190.50 3 / 3 Output Total 450 / 450 225 / 225 Balance 740.50 / 740.50 -222 / -222 Microbiology Past 72 Hours 04/11/19 21:30 Urine Culture - Preliminary Urine Catheter - Catheter Culture exhibits no growth. 04/11/19 21:30 Streptococcus pneumoniae Antigen (M - Final Urine Catheter - Catheter 04/11/19 21:30 Legionella Antigen - Final Urine Catheter - Catheter Laboratory Tests Past 24 Hrs 04/13/19 05:20 Sodium 137 Potassium 3.9 Chloride 103 Carbon Dioxide 25.0 Anion Gap 9 BUN 15 Creatinine 0.75 Estim Creat Clear Calc 51.06 Est GFR (MDRD) Af Amer 130 Est GFR (MDRD) Non-Af 107 BUN/Creatinine Ratio 20.0 Glucose 97 Calcium 7.9 L Phosphorus 3.0 Magnesium 2.1 TSH 1.16 Code Visit Addendum: Dr. Riley I personally examined the patient and reviewed the chart. I agree with the above. 79-year-old male who lives with his son presents to the hospital with 1 day history of weakness. He has had a productive cough which she saw his primary care for was started on doxycycline as an outpatient. In the ER he was found to have a left upper lobe pneumonia on CT of the chest and was started on Rocephin and azithromycin for community-acquired pneumonia. I discussed the case with the patient about potentially going to a detention facility after discharge for rehab which he has declined. He is currently off of oxygen and would like to go home. He will be discharged home on antibiotics and will have a referral for home health care and home PT. Inpatient E&M: [id number] Disch Hosp
--- NOTE | 2019-04-13 13:34 | CASEMGMT ---
LW/POA in echart, Elsy Osborn, daughter, is listed as POA. SW printed and placed forms in chart. DANYA Lau
--- NOTE | 2019-04-13 14:21 | CHAPLAIN ---
Type of Pastoral Visit ___ Initial Visit _x__ Follow-up Visit ___ On-call Visit ___ General Patient Visit ___ Spiritual Assessment ___ Family Conference ___ Bereavement ___ Rapid Response ___ Code Blue ___ Other (describe below) Pastoral Care Referral From _x__ Patient ___ Family ___ Nurse ___ Physician ___ Industrial Engineering Technologist ___ Cylinder Steamer ___ Other (describe below) Sacrament/Intervention _x__ Active listening ___ Anointing ___ Religious ___ Bereavement ___ Communion ___ Meli exploration ___ _x__ Life review ___ Prayer ___ Reconciliation ___ Sacrament of Sick ___ Supportive presence ___ Wedding ___ Other (describe below) Pastoral Comments
[2019-04-13 14:45] VITALS: BP 125/73; PULSE 91; RESP 16; TEMP 37; O2SAT 99
[2019-04-13 15:37] VITALS: PULSE 93
--- NOTE | 2019-04-14 15:23 | CASEMGMT ---
EDDI RIDDLE Discharge Follow-Up Phone Call. [place]: 11 Strata: 3 Adm Dx: CAP Call to pt to inquire about how he has been doing since being discharged from the hospital. Pt's daughter/POA answered and spoke with EDDI RIDDLE. She states pt has been doing well since returning home and states, he seems stronger than he was. She states her brother and sister who live with him have been assisting him as needed. She states she was able to pick remover the new prescriptions prior to pt being discharged and she has no questions about the discharge instructions, medications or follow-up appts. She states [facility] contacted her and that they told her someone will be calling her to make arrangements to come see pt on Thursday for start of care. Kofi RIDDLE RN, CM
== END 2019-04-13 17:01 | disposition home or self-care (01) | DRG 871 ==
LOC: ED 21:02 → PCU 04-12 00:04
PROVIDERS: Admitting Provider Hospitalist; Emergency Provider Emergency Medicine; Family Provider Family Medicine; PCP Family Medicine; Visit Provider Family Medicine
DX: A41.9 Sepsis, unspecified organism (principal); J18.1 Lobar pneumonia, unspecified organism; I48.91 Unspecified atrial fibrillation; K27.9 Peptic ulcer, site unspecified, unspecified as acute or chronic, without hemorrhage or perforation; K21.9 Gastro-esophageal reflux disease without esophagitis; E78.5 Hyperlipidemia, unspecified; R60.0 Localized edema; Z79.899 Other long term (current) drug therapy; Z88.0 Allergy status to penicillin; Z87.11 Personal history of peptic ulcer disease; Z85.46 Personal history of malignant neoplasm of prostate; Z92.3 Personal history of irradiation
CPT/HCPCS: 36415; 71045; 71046; 71250; 80048; 80053; 81001; 83605; 83735; 84100; 84443; 85025; 85610; 85730; 87040; 87086; 87449; 93005; 93306; 94667; 94668; 97162; 97165; 97530; 97802; 99285; J7030; J7050; A4216

== ENCOUNTER → 2019-07-04 10:48 | Outpatient (CLI) | payer MEDICARE, SELFPAY ==
[2019-06-06 15:35] VITALS: BMI 21.6
--- NOTE | 2019-07-04 11:17 | RAD_ITS ---
STUDY: X-RAY - LUMBOSACRAL SPINE REASON FOR EXAM: Male, 79 years old. TECHNIQUE: view(s) of the lumbosacral spine were obtained. COMPARISON: None FINDINGS: Normal lumbar lordosis. There is 19 degrees dextroscoliosis. There is normal alignment of the vertebrae. There is diffuse demineralization with multi-level endplate spondylosis. There is multi-level degenerative disc disease with multi-level disc space narrowing. There is degenerative arthrosis of the sacroiliac joint with articular joint space narrowing and spur formation. There is atherosclerotic calcification of the abdominal aorta without a demonstrated aneurysm. RAD/L/S Spine Comp/w Bending Views IMPRESSION: Degenerative changes of the spine, as detailed above. Electronically Signed: Jaron Li, at 0:32 EST Tel , Service support ,
--- NOTE | 2019-07-04 11:30 | RAD_ITS ---
STUDY: X-RAY - ORBITS REASON FOR EXAM: Male, 79 years old. Possible metal within the eyes. TECHNIQUE: 2 view(s) of the orbits were obtained. COMPARISON: None. FINDINGS: Normal bilateral orbits without a metallic orbital foreign body. Normal visualized facial bones. Normal paranasal sinuses. The soft tissue structures are unremarkable. RAD/Orbits for Foreign Body IMPRESSION: No demonstrated metallic orbital foreign body. The patient is cleared for an MRI examination. Electronically Signed: Juliano Delgado, at 12:31 EST , Service support ,
[2019-07-04 12:06] LABS: BUN 21 mg/dL (7-18); Creatinine, Serum 0.93 mg/dL (0.70-1.30)
[2019-07-04 12:07] LABS: EST Glomerular Filtration Rate 84 mL/min (>60); Est Glom Filt Rate - Afr Amer 101 mL/min (>60)
== END ==
PROVIDERS: Family Provider Family Medicine; PCP Family Medicine; Referring Provider Psychiatry & Neurology Neurology; Visit Provider Psychiatry & Neurology Neurology
DX: H44.60 Unspecified retained (old) intraocular foreign body, magnetic (principal); R47.1 Dysarthria and anarthria; R53.1 Weakness
CPT/HCPCS: 36415; 70030; 72114; 82565; 84520

== ENCOUNTER → 2019-07-15 10:17 | Outpatient (CLI) | payer MEDICARE, SELFPAY ==
[2019-06-06 15:35] VITALS: BMI 21.6
--- NOTE | 2019-07-15 10:45 | MRI_ITS ---
STUDY: MRI BRAIN WITH AND WITHOUT CONTRAST REASON FOR EXAM: Male, 79 years old. Unsteady gait TECHNIQUE: Standardized multiplanar fat and water weighted pulse sequences were obtained. IV Dotarem 14 was administered for the contrast portion of the examination. COMPARISON: CT head 10/24/2018. FINDINGS: There is moderate cerebral atrophy with widening of the extra-axial spaces and ventricular dilatation. There are a limited number of small white matter hyperintensities, distributed throughout the deep white matter tracts of the cerebral hemispheres, consistent with mild chronic white matter ischemic changes. There is no evidence for recent intracranial ischemia or other cause of cytotoxic edema on diffusion weighted imaging (DWI). Normal T2* images of the brain without demonstrated susceptibility artifact. There is no demonstrated hemosiderin stain. Normal bilateral basal ganglia. Normal thalami. There is no extra-axial fluid accumulation. Normal flow voids within the major intracranial circulation suggesting patency by spin echo criteria. Normal venous enhancement. There is no enhancing intra-axial or extra-axial abnormality. Normal sella turcica, pituitary gland, infundibular stalk, optic chiasm and hypothalamus. Normal tectal plate and pineal gland. Normal midbrain, helio and medulla. Normal cerebellum. Normal basal cisterns. Normal bilateral temporal bones. Normal bilateral internal auditory canals. No demonstrated orbital abnormality, within the constraints of a routine brain study. Normal visualized paranasal sinuses. Normal calvarium and skull base. Normal visualized soft tissue structures. Normal visualized upper cervical spine. MRI/Brain W/WO Contrast IMPRESSION: Involutional changes of the brain, as described above. No enhancing abnormality Electronically Signed: Adelaida Connolly, at 14:09 EST Tel , Service support ,
== END ==
PROVIDERS: Family Provider Family Medicine; PCP Family Medicine; Referring Provider Psychiatry & Neurology Neurology; Visit Provider Psychiatry & Neurology Neurology
DX: G91.9 Hydrocephalus, unspecified (principal)
CPT/HCPCS: 70553

== ENCOUNTER → 2019-10-27 06:53 | Outpatient (CLI) | payer MEDICARE, SELFPAY ==
[2019-06-06 15:35] VITALS: BMI 21.6
[2019-10-27 08:15] LABS: Erythrocyte Sedimentation Rate 13 mm/hr (0-20)
[2019-10-27 08:16] LABS: Hemoglobin A1c 5.7 % (4.2-6.3)
[2019-10-27 08:27] LABS: AST(SGOT) 30 U/L (15-37); Alanine Aminotransfer ALT/SGPT 54 U/L (16-61); Albumin, Serum 3.5 g/dL (3.2-5.0); Alkaline Phosphatase 100 U/L (45-117); Bilirubin, Direct 0.11 mg/dL (0.00-0.30); Cholesterol 173 mg/dL (200); Globulin 3.4 g/dL (2.2-4.2); High Density Lipoprotein 52 mg/dL; Protein, Total 6.9 g/dL (6.4-8.2); Triglycerides 75 mg/dL; Very Low Density Lipoprotein 15 mg/dL (5-40)
[2019-10-27 09:24] LABS: Hepatitis C Antibody Non-Reactive (Nonreactive); Vitamin B12 599 pg/mL (211-911)
[2019-10-28 16:07] LABS: PROEL- A/G Ratio 1.3 (0.7-1.7); PROEL- Albumin 3.5 g/dL (2.9-4.4); PROEL- Alpha-1 Globulin 0.3 g/dL (0.0-0.4); PROEL- Alpha-2 Globulin 0.8 g/dL (0.4-1.0); PROEL- Beta Globulin 1.1 g/dL (0.7-1.3); PROEL- Gamma Globulin 0.7 g/dL (0.4-1.8); PROEL- Globulin, Total 2.8 g/dL (2.2-3.9); PROEL- TOTAL PROTEIN 6.3 g/dL (6.0-8.5); RNP Ab <0.2 AI (0.0-0.9); Smith Ab <0.2 AI (0.0-0.9)
[2019-10-28 23:49] LABS: ANTINUCLEAR ANTIBODIES DIRECT Negative (Negative)
== END ==
PROVIDERS: Psychiatry & Neurology Neurology; PCP Family Medicine; Referring Provider Internal Medicine Cardiovascular Disease; Visit Provider Internal Medicine Cardiovascular Disease
DX: G62.9 Polyneuropathy, unspecified (principal); R53.83 Other fatigue; R73.9 Hyperglycemia, unspecified; E78.5 Hyperlipidemia, unspecified
CPT/HCPCS: 36415; 80061; 80076; 82607; 82746; 83036; 84165; 84443; 85652; 86038; 86235; 86431; 86803

== ENCOUNTER → 2019-10-28 16:30 | Outpatient (CLI) | payer MEDICARE, SELFPAY ==
[2019-06-06 15:35] VITALS: BMI 21.6
[2019-11-02 13:05] LABS: Creatinine, Urine 0.31 g/L (0.30-3.00)
== END ==
PROVIDERS: PCP Family Medicine; Referring Provider Psychiatry & Neurology Neurology; Visit Provider Psychiatry & Neurology Neurology
DX: G62.9 Polyneuropathy, unspecified (principal); R53.83 Other fatigue; R73.9 Hyperglycemia, unspecified
CPT/HCPCS: 82175; 82570; 83655; 83825

== ENCOUNTER → 2020-09-08 07:19 | Outpatient (CLI) | payer MEDICARE, SELFPAY ==
[2019-06-06 15:35] VITALS: BMI 21.6
[2020-09-08 08:17] LABS: AST(SGOT) 18 U/L (15-37); Alanine Aminotransfer ALT/SGPT 33 U/L (16-61); Albumin, Serum 3.7 g/dL (3.2-5.0); Alkaline Phosphatase 99 U/L (45-117); Bilirubin, Direct 0.16 mg/dL (0.00-0.30); Cholesterol 169 mg/dL (200); Globulin 3.4 g/dL (2.2-4.2); High Density Lipoprotein 49 mg/dL; Protein, Total 7.1 g/dL (6.4-8.2); Triglycerides 68 mg/dL; Very Low Density Lipoprotein 14 mg/dL (5-40)
== END ==
PROVIDERS: PCP Family Medicine; Referring Provider Internal Medicine Cardiovascular Disease; Visit Provider Internal Medicine Cardiovascular Disease
DX: E78.5 Hyperlipidemia, unspecified (principal)
CPT/HCPCS: 36415; 80061; 80076

== ENCOUNTER → 2021-03-23 07:16 | Outpatient (CLI) | payer MEDICARE, SELFPAY ==
[2021-01-09 12:33] VITALS: BMI 22.7
[2021-03-23 08:02] LABS: AST(SGOT) 20 U/L (15-37); Alanine Aminotransfer ALT/SGPT 36 U/L (16-61); Albumin, Serum 3.6 g/dL (3.2-5.0); Alkaline Phosphatase 94 U/L (45-117); Bilirubin, Direct 0.18 mg/dL (0.00-0.30); Cholesterol 177 mg/dL (200); Globulin 3.2 g/dL (2.2-4.2); High Density Lipoprotein 47 mg/dL; Protein, Total 6.8 g/dL (6.4-8.2); Triglycerides 80 mg/dL; Very Low Density Lipoprotein 16 mg/dL (5-40)
== END ==
PROVIDERS: PCP Family Medicine; Referring Provider Internal Medicine Cardiovascular Disease; Visit Provider Internal Medicine Cardiovascular Disease
DX: E78.00 Pure hypercholesterolemia, unspecified (principal); E78.5 Hyperlipidemia, unspecified
CPT/HCPCS: 36415; 80061; 80076